=== PATIENT | male | born 1950 | race Caucasian/White ===

== ENCOUNTER 2019-11-19 08:12 | Emergency (ER) | payer OTHER, SELFPAY ==
[2019-11-19 08:14] VITALS: BP 129/92; PULSE 64; RESP 12; TEMP 36.8; O2SAT 96; BMI 34.7
[2019-11-19 08:18] VITALS: PULSE 60
--- NOTE | 2019-11-19 08:19 | RAD_ITS ---
STUDY: X-RAY CHEST REASON FOR EXAM: Male, 69 years old. CHEST PAIN, ARM TINGLING TECHNIQUE: PA and lateral views of the chest. COMPARISON: None. FINDINGS: EKG electrodes are seen. The lungs are clear and expanded. There is no demonstrated pleural abnormality. Normal size heart. Normal mediastinum and beni. Normal visualized pulmonary arteries. Normal visualized aortic arch and descending thoracic aorta. There are mild degenerative changes of the visualized thoracic spine. Normal visualized ribs, clavicles, and shoulders. There is no demonstrated abnormality of the visualized soft tissue structures of the upper abdomen. RAD/Chest PA and Lateral IMPRESSION: No acute abnormality is seen. Electronically Signed: Nils Leavitt, at 9:10 EST , Service support ,
--- NOTE | 2019-11-19 08:19 | EKG12_ITS ---
Test Reason : Blood Pressure : / mmHG Vent. Rate : 062 BPM Atrial Rate : 062 BPM P-R Int : 178 ms QRS Dur : 092 ms QT Int : 418 ms P-R-T Axes : 045 053 019 degrees QTc Int : 424 ms Normal sinus rhythm Normal ECG Confirmed by ANGÉLICA MADERA ([id number]), deputy editor in chief ABDIRAHMAN FELDMAN ([id number]) on 11/23/2019 3:46:17 PM Referred By: OSCAR Confirmed By:ANGÉLICA MADERA
--- NOTE | 2019-11-19 08:23 | NURSING ---
NO OLD EKGS
--- NOTE | 2019-11-19 08:28 | ED.DCSUM_ITS ---
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 He states it made his right arm ache and hands tingle. His son gave him a nitroglycerin and he states his left arm started to tingle. EMS arrived and noted him to be in SVT. They attempted vagal maneuvers and eventually he converted to a sinus rhythm and symptoms resolved. He tells me he has had this before since his cardiac stent placement. He was seen at another facility for that event. He reports having had a stent placed what he believes was the LAD 2 to 3 years ago in [place]. He does not believe that he has had a stress test since that time. States he still sees a juvenile corrections officer in [place] but cannot recall the name. He does not have a complete list of medications with him. He does note that he is on Plavix and aspirin. He sees Dr. Boyer for cardiology through [facility]. 1 of the patient's concerns not related to this episode is that he is hoping to get some back injections for a lower back injury and they wanted him off of his Plavix for 7 days. They just turned that request into his juvenile corrections officer. Past Medical History - Allergies and Home Meds Allergies/Adverse Reactions: Allergies No Known Allergies Allergy (Verified 11/19/19 08:14) Primary Care Physician: Evelyn Rosales DO [Primary Care Provider] - Smoking Status: Never smoker Review of Systems General: Denies: Chills, Fever, Sweats Eyes: Denies: Visual changes - bilaterally, Diplopia ENT: Denies: Rhinorrhea, Sore throat Cardiovascular: Reports: Chest pain, Palpitations, Heart racing Respiratory: Denies: Dyspnea, Cough, Dyspnea on exertion Gastrointestinal: Denies: Abdominal pain, Nausea, Vomiting, Diarrhea, Melena, Hematochezia Genitourinary: Denies: Dysuria, Hematuria, Frequency Musculoskeletal: Denies: Back pain, Extremity Pain Skin: Denies: Rash, Wounds Neurological: Denies: Headache, Weakness, Numbness Physical Exam Vital Signs/Narrative: Vital Signs Temp Pulse Resp BP Pulse Ox 11/19/19 08:18 60 11/19/19 08:14 98.2 F 64 12 129/92 H 96 Inital Vital Signs reviewed: Yes General: Well nourished, Well developed, No Acute Distress Head: Normocephalic, Atraumatic Eyes: Perrl, EOMI ENT: Moist mucous membranes, No rhinorrhea Neck: Supple, Nontender Cardiovascular: Regular rate, Regular rhythm, No murmurs Respiratory: No distress, CTA bilaterally, Chest nontender Abdomen: Soft, Nontender, Nondistended, Normal bowel sounds Back: Nontender, Normal Inspection Extremities: Nontender, No edema Skin: Normal color, No rash Neurological: Alert, Oriented x3, Cranial nerves II-XII grossly intact, Normal Strength, Normal Sensation Psychological: Normal affect, Normal Mood Diagnostic/Tx/Re-eval - Rhythm Strip Rhythm Strip: Sinus Rhythm Rate: 62 - No concerning features for ACS. Ectopy: None - Medical Decision Making Patient's basic labs including magnesium potassium sodium TSH and troponin were normal. Chest x-ray showed a normal mediastinal silhouette. His EKG shows a sinus rhythm. His resting heart rate has been mid 50s to 60. He has had no further events on monitor her symptoms. I spoke with on-call juvenile corrections officer Dr. Esteves who is offering for his juvenile corrections officer. Will be discharged home to follow-up with his juvenile corrections officer. As far as the question is stopping the Plavix that is something they will need to address at his follow-up appointment. Given that his resting heart rate is in the 50s and 60s and he was previously on atenolol for which his states was stopped due to symptoms of feeling sluggish and fatigue I do not think we should start a new medication. ED Disposition - Plan for ED Patient: Disposition: Home or Assisted Living Diagnosis: SVT (supraventricular tachycardia) Instructions: Inna (P.A.T.) Referrals: Evelyn Rosales DO [Primary Care Provider] - Additional Instructions: Please call your juvenile corrections officer today to arrange early follow-up. If symptoms recur please go to your nearest emergency department.
--- NOTE | 2019-11-19 08:38 | NURSING ---
LEFT MESSAGE ON DR BERNAL'S NURSE'S MACHINE FOR MED LIST
[2019-11-19 08:39] LABS: Absolute Lymphocyte Count 1.74 X10^3/uL (0.83-4.51); Absolute Neutrophil Count 3.8 X10^3/uL (2.0-7.7); Basophil# 0.04 X10^3/uL; Basophil% 0.7 % (0-1); Eosinophil# 0.19 X10^3/uL; Eosinophils% 3.1 % (0-5); Hematocrit 45.6 % (40-54); Hemoglobin 15.2 g/dL (13.0-16.5); Lymphocyte # 1.74 X10^3/ul (4.0); Lymphocyte % 28.7 % (19-41); Mean Corp Hgb Conc 33.3 g/dL (32-36); Mean Platelet Vol. 9.2 fl (6.2-12.0); Monocyte# 0.34 X10^3/uL; Monocyte% 5.6 % (0-10); NRBC Flagged by Analyzer 0 % (0-5); Neutrophil # 3.75 X10^3/uL (2.7-7.7); Neutrophil % 61.7 % (47-70); Platelet Count 211 K/mm3 (150-450); RBC Distribution Width CV 12.9 % (11.6-14.6); RBC Distribution Width SD 40.6 fl (35.1-43.9); Red Blood Count 5.24 M/mm3 (4.6-6.2); White Blood Count 6.1 K/mm3 (4.4-11.0)
[2019-11-19 08:53] LABS: Anion Gap 7 (5-15); BUN 25 mg/dL (7-18); BUN/Creat Ratio 19.7 RATIO (10-20); Calcium,Total 9.2 mg/dL (8.5-10.1); Chloride 109 mmol/L (98-107); Creatinine, Serum 1.27 mg/dL (0.70-1.30); EST Glomerular Filtration Rate 60 mL/min (>60); Est Glom Filt Rate - Afr Amer 73 mL/min (>60); Estimated Creatinine Clearance 61.95 ml/min; Glucose 148 mg/dL (74-106); Magnesium 2.2 mg/dL (1.6-2.6); Potassium 3.5 mmol/L (3.5-5.1); Sodium Level 141 mmol/L (136-145); Thyroid Stim Hormone (TSH) 2.04 uIU/mL (0.358-3.74)
--- NOTE | 2019-11-19 09:10 | NURSING ---
CALLED [facility] [employer] FOR DR MOORE
[2019-11-19 09:40] VITALS: BP 123/86; PULSE 59; RESP 18; O2SAT 96
== END 2019-11-19 09:41 | disposition home or self-care (01) ==
PROVIDERS: Emergency Provider Emergency Medicine; PCP Family Medicine
DX: I47.1 Supraventricular tachycardia (principal); Z95.5 Presence of coronary angioplasty implant and graft
CPT/HCPCS: 71046; 80048; 83735; 84443; 84484; 85025; 93005; 99285; J7030; A4216

== ENCOUNTER → 2022-11-21 | Outpatient (CLI) | payer MEDICARE, OTHER, SELFPAY ==
[2022-11-21 12:12] LABS: Bacteria 0 SEEN /hpf (None Seen); Mucous, Urine 0 SEEN /hpf (<or=2+); Red Blood Cells-Urine 0 SEEN /hpf (0-5); Squamous Epithelial Cells - UA 0 SEEN /hpf (0-5); White Blood Cells 0 SEEN /hpf (0-5)
[2022-11-21 15:37] LABS: Absolute Neutrophil Count 3.7 X10^3/uL (2.0-7.7); Basophil# 0.06 X10^3/uL; Eosinophil# 0.15 X10^3/uL; Eosinophils% 2.5 % (0-5); Hematocrit 47.1 % (40-54); Hemoglobin 15.4 g/dL (13.0-16.5); Lymphocyte % 27.2 % (19-41); Mean Corp Hgb Conc 32.7 g/dL (32-36); Mean Corpuscular Hgb 29.6 pg (27.0-32.0); Mean Corpuscular Volume 90.6 fL (80-94); Mean Platelet Vol. 9.5 fl (6.2-12.0); Monocyte# 0.35 X10^3/uL; Monocyte% 5.9 % (0-10); NRBC Flagged by Analyzer 0 % (0-5); Neutrophil % 62.9 % (47-70); Platelet Count 220 K/mm3 (150-450); RBC Distribution Width CV 12.8 % (11.6-14.6); White Blood Count 5.9 K/mm3 (4.4-11.0)
[2022-11-21 16:01] LABS: ALB/GLOB Ratio 1.1 RATIO (0.9-2.4); AST(SGOT) 16 U/L (15-37); Alanine Aminotransfer ALT/SGPT 31 U/L (16-61); Albumin, Serum 4.1 g/dL (3.2-5.0); Alkaline Phosphatase 92 U/L (45-117); Anion Gap 7 (5-15); BUN 18 mg/dL (7-18); BUN/Creat Ratio 15.5 RATIO (10-20); Calcium,Total 8.6 mg/dL (8.5-10.1); Chloride 105 mmol/L (98-107); Cholesterol 93 mg/dL (200); Creatinine, Serum 1.16 mg/dL (0.70-1.30); EST Glomerular Filtration Rate 66 mL/min (>60); Est Glom Filt Rate - Afr Amer 80 mL/min (>60); Globulin 3.6 g/dL (2.2-4.2); Glucose 105 mg/dL (74-106); High Density Lipoprotein 40 mg/dL; Potassium 3.9 mmol/L (3.5-5.1); Protein, Total 7.7 g/dL (6.4-8.2); Sodium Level 139 mmol/L (136-145); Thyroid Stim Hormone (TSH) 1.54 uIU/mL (0.358-3.74); Triglycerides 102 mg/dL; Uric Acid 4.6 mg/dL (3.5-7.2); Very Low Density Lipoprotein 20 mg/dL (5-40)
[2022-11-21 16:02] LABS: Glucose, Dipstick Normal (Normal); Ketone-Dipstick Negative (Negative); Leukocyte Esterase-Dipstick Negative /ul (Negative); Nitrite-Dipstick Negative (Negative); Occult Blood-Urine Negative /ul (Negative); Protein-Dipstick Negative (Negative); Specific Gravity, Urine 1.015 (1.002-1.030); Urine Bilirubin Dipstick Negative (Negative); Urine Urobilinogen Normal (Normal)
[2022-11-21 16:54] LABS: Color, Urine Yellow (Yellow); Urine Clarity Clear (Clear)
[2022-11-22 15:12] LABS: Hemoglobin A1c 5.9 % (3.8-5.6)
[2022-11-23 19:19] LABS: Anti-Thyroglobulin AB < 1.0 IU/mL (0.0-0.9); Thyroglobulin, Serum Qt. 10.2 ng/mL (1.4-29.2); Thyroid Peroxidase AB < 9 IU/mL (0-34)
== END | disposition home or self-care (01) ==
LOC: MFPLAB 12:03
PROVIDERS: PCP Family Medicine; Referring Provider Family Medicine; Visit Provider Family Medicine
DX: R73.9 Hyperglycemia, unspecified (principal); E04.1 Nontoxic single thyroid nodule; I10 Essential (primary) hypertension
CPT/HCPCS: 36415; 80053; 80061; 81001; 83036; 84432; 84439; 84443; 84550; 85025; 86376; 86800

== ENCOUNTER → 2023-01-15 | Outpatient (CLI) | payer MEDICARE, OTHER, SELFPAY ==
--- NOTE | 2023-01-15 16:32 | RAD_ITS ---
INDICATION: PAIN EXAMINATION/TECHNIQUE: X-RAY - RIGHT XR Knee 3 Views 3 VIEWS COMPARISON: Left knee radiograph on same day. FINDINGS: SOFT TISSUES: Minimal prepatellar soft tissue thickening. No joint effusion. No radiopaque foreign body. BONES/JOINTS: No acute fracture.. Normal alignment. Tricompartment joint space narrowing, moderate in the medial compartment with minimal patellar and medial tibial plateau osteophyte formation... No sclerotic or destructive changes observed. 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 Minimal prepatellar soft tissue thickening of unknown significance, sometimes secondary to bursitis in the absence of trauma.. Electronically Signed: Matthew Verdin MD at 6:45 EDT ,
--- NOTE | 2023-01-15 16:35 | RAD_ITS ---
INDICATION: PAIN EXAMINATION/TECHNIQUE: X-RAY - LEFT XR Knee 3 Views 3 VIEWS COMPARISON: None. FINDINGS: SOFT TISSUES: Mild prepatellar soft tissue edema. No subcutaneous emphysema. No radiopaque foreign body. BONES/JOINTS: No acute fracture.. Normal alignment. Medial and patellofemoral compartment moderate space narrowing with minimal osteophyte formation. No sclerotic or destructive changes observed. RAD/Knee 3 Views IMPRESSION: Moderate osteoarthritis predominantly within the medial and patellofemoral compartment.. Mild prepatellar soft tissue edema of uncertain significance, sometimes secondary to bursitis in the absence of trauma. Electronically Signed: Matthew Verdin MD at 6:41 EDT ,
== END | disposition home or self-care (01) ==
LOC: MTRAD 16:31
PROVIDERS: PCP Family Medicine; Referring Provider Family Medicine; Visit Provider Family Medicine
DX: M25.561 Pain in right knee (principal); M25.562 Pain in left knee
CPT/HCPCS: 73562

== ENCOUNTER → 2023-02-01 | Outpatient (CLI) | payer MEDICARE, OTHER, SELFPAY ==
--- NOTE | 2023-02-01 13:47 | ECHOCS_ITS ---
Reason For Study: Cardiac Murmur Procedure This was a 2D Doppler, Color Flow transthoracic echocardiogram. The study was technically difficult. Contrast injection was performed. Exam performed in department. Left Ventricle Normal LV size. The estimated ejection fraction is 65 %. No evidence for diastolic dysfunction. No regional wall motion abnormalities noted. Right Ventricle Normal RV size. Normal systolic function. Atria Normal left atrium. Normal right atrium. No doppler evidence for ASD. Bubble contrast study negative for right to left interatrial shunt. Mitral Valve There is no mitral valve stenosis. No mitral valve insufficiency. Tricuspid Valve There is no tricuspid stenosis. Unable to estimate RV systolic pressure due to inadequate jet, pulmonary artery pressure probably normal. Aortic Valve Trisinus/trileaflet aortic valve. There is no aortic stenosis. No aortic valve insufficiency. Pulmonic Valve There is no pulmonic valvular stenosis. No pulmonic valve insufficiency. Great Vessels Normal aortic root. Pericardium/Pleural No pericardial effusion. Medication 22 gauge I.V. with prn adaptor inserted into left arm. Diluted definity 1.5ml given slow IV push to enhance endocardial definition. Performed a rapid injection of agitated mix of 9 cc saline and 1cc air to assess for atrial septal defect. MMode/2D Measurements & Calculations LVIDd: 4.8 cm IVSd: 1.5 cm LA dimension: 5.1 cm LVIDs: 3.1 cm LVPWd: 1.3 cm RVDd: 5.1 cm FS: 34.9 % LAV(MOD-bp): 79.1 ml LA A4 area: 26.2 cm2 RA A4 area: 23.1 cm2 LAV(MOD-bp) Indexed: 33.7 ml/m2 LAV(MOD-sp2): 62.3 ml LAV(MOD-sp4): 88.8 ml Time Measurements MV dec time: 0.33 sec Doppler Measurements & Calculations MV E max guero: 60.6 cm/sec Lat Peak E' Guero: 10.2 cm/sec Med Peak E' Guero: 8.1 cm/sec MV A max guero: 90.6 cm/sec E/E' lat: 6.0 E/E' med: 7.5 MV E/A: 0.67 MV V2 max: 114.3 cm/sec MV P1/2t max guero: 85.7 cm/sec Ao V2 max: 159.9 cm/sec MV max P.2 mmHg MV P1/2t: 126.2 msec Ao max P.2 mmHg MV V2 mean: 50.2 cm/sec MV dec slope: 198.9 cm/sec2 Ao V2 mean: 108.4 cm/sec MV mean P.2 mmHg Ao mean P.3 mmHg MV V2 VTI: 42.1 cm MVA(P1/2t): 1.7 cm2 Ao V2 VTI: 34.4 cm LV V1 max: 136.1 cm/sec PA V2 max: 112.1 cm/sec LV V1 max P.4 mmHg ECHO/Echo Complete W/ Contrast Interpretation Summary The estimated ejection fraction is 65 %. No evidence for diastolic dysfunction. Ordering Physician: Juliocesar Dominguez Referring Physician: Juliocesar Dominguez Performed By: Roscoe Barger, PRAVIN
== END | disposition home or self-care (01) ==
LOC: CVS 13:37
PROVIDERS: PCP Family Medicine; Referring Provider Family Medicine; Visit Provider Family Medicine
DX: R01.1 Cardiac murmur, unspecified (principal)
CPT/HCPCS: 93306; Q9957; A4216; C8929

== ENCOUNTER → 2023-06-05 | Outpatient (CLI) | payer MEDICARE, OTHER, SELFPAY ==
[2023-06-05 17:43] LABS: Absolute Lymphocyte Count 1.38 X10^3/uL (0.83-4.51); Absolute Neutrophil Count 4.9 X10^3/uL (2.0-7.7); Basophil# 0.05 X10^3/uL; Basophil% 0.7 % (0-1); Eosinophil# 0.13 X10^3/uL; Eosinophils% 1.9 % (0-5); Hematocrit 45.5 % (40-54); Hemoglobin 14.5 g/dL (13.0-16.5); Lymphocyte # 1.38 X10^3/ul (0.83-4.51); Lymphocyte % 19.9 % (19-41); Mean Corp Hgb Conc 31.9 g/dL (32-36); Mean Corpuscular Hgb 29.4 pg (27.0-32.0); Mean Corpuscular Volume 92.1 fL (80-94); Mean Platelet Vol. 8.8 fl (6.2-12.0); Monocyte# 0.47 X10^3/uL; Monocyte% 6.8 % (0-10); NRBC Flagged by Analyzer 0 % (0-5); Neutrophil # 4.87 X10^3/uL (2.7-7.7); Neutrophil % 70.3 % (47-70); Platelet Count 203 K/mm3 (150-450); RBC Distribution Width CV 13.1 % (11.6-14.6); RBC Distribution Width SD 43.8 fl (35.1-43.9); Red Blood Count 4.94 M/mm3 (4.6-6.2); White Blood Count 6.9 K/mm3 (4.4-11.0)
[2023-06-05 18:27] LABS: ALB/GLOB Ratio 1.1 RATIO (0.9-2.4); AST(SGOT) 13 U/L (15-37); Alanine Aminotransfer ALT/SGPT 26 U/L (16-61); Alkaline Phosphatase 83 U/L (45-117); Anion Gap 5 (5-15); BUN 18 mg/dL (7-18); Calcium,Total 8.7 mg/dL (8.5-10.1); Chloride 105 mmol/L (98-107); Cholesterol 98 mg/dL (200); Creatinine, Serum 1.29 mg/dL (0.70-1.30); EST Glomerular Filtration Rate 58 mL/min (>60); Est Glom Filt Rate - Afr Amer 71 mL/min (>60); Globulin 3.5 g/dL (2.2-4.2); Glucose 89 mg/dL (74-106); Hemoglobin A1c 5.3 % (3.8-5.6); High Density Lipoprotein 39 mg/dL; Potassium 3.7 mmol/L (3.5-5.1); Protein, Total 7.5 g/dL (6.4-8.2); Sodium Level 139 mmol/L (136-145); Triglycerides 159 mg/dL; Uric Acid 4.6 mg/dL (3.5-7.2); Very Low Density Lipoprotein 32 mg/dL (5-40)
== END | disposition home or self-care (01) ==
LOC: MFPLAB 17:04
PROVIDERS: PCP Family Medicine; Visit Provider Family Medicine
DX: R73.02 Impaired glucose tolerance (oral) (principal); E78.5 Hyperlipidemia, unspecified; I10 Essential (primary) hypertension; M10.9 Gout, unspecified
CPT/HCPCS: 36415; 80053; 80061; 83036; 84550; 85025

== ENCOUNTER → 2023-06-18 | Outpatient (CLI) | payer MEDICARE, OTHER, SELFPAY ==
[2023-06-18 12:44] LABS: Anion Gap 6 (5-15); BUN 24 mg/dL (7-18); BUN/Creat Ratio 21.2 RATIO (10-20); Calcium,Total 8.8 mg/dL (8.5-10.1); Chloride 108 mmol/L (98-107); Creatinine, Serum 1.13 mg/dL (0.70-1.30); EST Glomerular Filtration Rate 68 mL/min (>60); Est Glom Filt Rate - Afr Amer 82 mL/min (>60); Glucose 111 mg/dL (74-106); Potassium 4.1 mmol/L (3.5-5.1); Sodium Level 138 mmol/L (136-145)
== END | disposition home or self-care (01) ==
LOC: MFPLAB 10:32
PROVIDERS: PCP Family Medicine; Visit Provider Family Medicine
DX: R94.4 Abnormal results of kidney function studies (principal)
CPT/HCPCS: 36415; 80048

== ENCOUNTER 2023-07-11 14:53 | Emergency (ER) | payer MEDICARE, OTHER, SELFPAY ==
[2023-07-11 14:58] VITALS: BP 137/77; PULSE 53; RESP 18; TEMP 36.1; O2SAT 98
--- NOTE | 2023-07-11 15:22 | EKG12_ITS ---
Test Reason : GENERAL Blood Pressure : / mmHG Vent. Rate : 049 BPM Atrial Rate : 049 BPM P-R Int : 200 ms QRS Dur : 086 ms QT Int : 438 ms P-R-T Axes : 046 047 032 degrees QTc Int : 395 ms Sinus bradycardia Otherwise normal ECG Confirmed by OBEY ANDRES, CHANDNI ([id number]), fashion editor STERLING LIU ([id number]) on 07/16/2023 12:20:39 PM Referred By: Confirmed By:CHANDNI BARNHART MD
--- NOTE | 2023-07-11 15:22 | RAD_ITS ---
STUDY: X-RAY CHEST REASON FOR EXAM: Male, 73 years old. Bradycardia TECHNIQUE: Single AP portable view of the chest. COMPARISON: Comparison is made with prior study dated November 19, 2019. FINDINGS: EKG electrodes are seen. Basilar congestion and mild CHF. There is no demonstrated pleural abnormality. There is mild cardiac enlargement. Normal mediastinum and beni. Normal visualized pulmonary arteries. There is atherosclerotic tortuosity of the aortic arch and descending thoracic aorta. Normal visualized thoracic spine. Normal visualized ribs, clavicles, and shoulders. There is no demonstrated abnormality of the visualized soft tissue structures of the upper abdomen. RAD/Chest 1 View (Portable) IMPRESSION: Vascular congestion and CHF. Mild cardiomegaly. Electronically Signed: Nils Leavitt MD at 15:35 EDT ,
--- NOTE | 2023-07-11 15:23 | EX.ED.DYSGE1 ---
HPI History of Present Illness Chief Complaint: General Illness Detail of Chief Complaint: Headache, congestion, low heart rate Informant: patient and spouse/S.O. Narrative Narrative: Patient presents to the emergency department with multiple complaints. Main concern was that while at home his heart rate as low as 48. 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 Patient has had some Mucinex. Describes a headache in the back of his head. He has had some lightheadedness. Patient also complains of some intermittent numbness and tingling into his left arm and down to his hand lasting seconds and then resolves. He denies any weakness or vision changes or difficulty with speech. Patient has history of a cardiac stent. He denies chest pain or shortness of breath. He denies sick contacts. [facility] Medical History (Updated 07/11/23 @ 18:[address] Silvia Mariee, ) H/O: gout HTN (hypertension) Hypercholesteremia Home Medications allopurinol 300 mg tablet 300 mg PO DAILY 11/19/19 [History Last Taken Unknown] atorvastatin 80 mg tablet 80 mg PO QHS 11/19/19 [History Last Taken Unknown] clopidogrel 75 mg tablet 75 mg PO DAILY 11/19/19 [History Last Taken Unknown] colchicine (gout) 0.6 mg capsule 0.6 mg PO DAILY 11/19/19 [History Last Taken Unknown] diclofenac sodium 75 mg tablet,delayed release 75 mg PO BIDCM 11/19/19 [History Last Taken Unknown] lisinopril 2.5 mg tablet 2.5 mg PO DAILY 11/19/19 [History Last Taken Unknown] nitroglycerin 0.4 mg sublingual tablet 0.4 mg sublingual Q5M PRN Chest Pain 11/19/19 [History Last Taken Unknown] trazodone 100 mg tablet 150 mg PO QHS 11/19/19 [History Last Taken Unknown] Allergy/AdvReac Type Severity Reaction Status Date / Time No Known Allergies Allergy Verified 07/11/23 14:58 Surgical History (Updated 07/11/23 @ 15:20 by Teresa Polk) H/O heart artery stent Social History Smoking Status: Never smoker ROS ROS ED Review of Systems ROS Unobtainable: other Constitutional Constitutional ED: Reports lethargy; Denies chills, fever(s), sweats or weight loss Eyes Eyes: Denies blurry vision, change in vision or diplopia ENT ENT ED: Reports other Details: Congestion ; Denies rhinorrhea or sore throat Cardiovascular Cardiovascular: Reports other Details: Bradycardia ; Denies chest pain, orthopnea or racing heartbeat Respiratory/Chest Respiratory/Chest: Reports dyspnea and dyspnea on exertion; Denies cough, orthopnea or sputum Gastrointestinal Gastrointestinal: Denies abdominal pain, diarrhea, nausea or vomiting Genitourinary Genitourinary ED: Denies dysuria, hematuria or urinary frequency Musculoskeletal Musculoskeletal: Denies arthralgias, back pain, myalgias or neck pain Integumentary Denies abscess, Abrasions or rash Neurologic Neurologic: Reports headache(s) and paresthesias; Denies weakness Psychiatric Psychiatric: Denies anxiety, depression or suicidal thoughts Endocrine Endocrinology: Denies polydipsia, polyphagia or polyuria Hematologic/Lymphatic Hematologic/Lymphatic: Denies easy bleeding, easy bruising or lymphadenopathy Allergic/Immunologic Allergic/Immunologic ED: Denies mouth swelling, tongue swelling or urticaria EXAM Physical Exam Const Vital Signs: 07/11/23 14:58 07/11/23 15:19 07/11/23 16:49 Temperature 96.9 F L Temperature Source Temporal Pulse Rate 53 L Pulse Rate [Lying] 57 L Pulse Rate [Sitting (for 1 minute prior to obtaining)] 55 L Pulse Rate [Standing (for 1 minute prior to obtaining)] 62 Respiratory Rate 18 Respiratory Effort Normal Non-Labored Blood Pressure 137/77 H Blood Pressure [Lying] 131/71 H Blood Pressure [Sitting (for 1 minute prior to obtaining)] 128/81 H Blood Pressure [Standing (for 1 minute prior to obtaining)] 143/80 H Blood Pressure Mean 97 Blood Pressure Mean [Lying] 91 Blood Pressure Mean [Sitting (for 1 minute prior to obtaining)] 96 Blood Pressure Mean [Standing (for 1 minute prior to obtaining)] 101 Pulse Ox 98 Oxygen Delivery Method Room Air 07/11/23 18:27 Temperature Temperature Source Pulse Rate 55 L Pulse Rate [Lying] Pulse Rate [Sitting (for 1 minute prior to obtaining)] Pulse Rate [Standing (for 1 minute prior to obtaining)] Respiratory Rate 18 Respiratory Effort Blood Pressure 126/66 H Blood Pressure [Lying] Blood Pressure [Sitting (for 1 minute prior to obtaining)] Blood Pressure [Standing (for 1 minute prior to obtaining)] Blood Pressure Mean 86 Blood Pressure Mean [Lying] Blood Pressure Mean [Sitting (for 1 minute prior to obtaining)] Blood Pressure Mean [Standing (for 1 minute prior to obtaining)] Pulse Ox 97 Oxygen Delivery Method Positive well nourished and well developed General Appearance ED: well developed and NAD HEENT Reports TM's clear and moist mucous membranes normocephalic and atraumatic; Negative for trauma or tenderness Tympanic Membrane ED: Yes TM's clear Eyes PERRL and EOMs intact bilaterally General Eye ED: Negative for pale conjunctiva or scleral icterus Neck no lymphadenopathy, supple and no JVD General: Negative for tenderness Chest Wall inspection of chest normal and palpation of chest normal Chest: Negative for tenderness Resp normal respiratory effort and clear to auscultation bilaterally Effort and Inspection: Negative for respiratory distress or pain with movement Auscultation: Negative for rhonchi, wheezes or diminished lung sounds Cardio regular rate, regular rhythm, S1 normal heart sound, S2 normal heart sound and no murmurs Peripheral Pulses: pulses 2+ throughout GI normal to inspection, nondistended, normoactive bowel sounds, soft to palpation, non-tender, non-distended and no masses Back/Spine no CVA tenderness and no thoracic nor lumbar tenderness Extremity normal to inspection General Extremety ED: Negative for edema General Extremity: Negative for edema Neuro oriented x3, CN's II-XII intact bilaterally, no sensory deficits noted and gait normal Sensorium / Orientation: awake, alert, oriented to person, oriented to place and oriented to time Motor Exam: strength 5/5 throughout and strength abnormal Psych mental status grossly normal Skin no rashes or lesions noted and no wounds MDM MDM MDM Narrative Medical decision making narrative: Patient presents with multiple complaints. Suspect possibility of viral etiology given congestion and headache. Suspicion for cardiac etiology is low as far as acute coronary syndrome. Patient does have noted bradycardia on arrival however his heart rate normally in the 60s and he has a normal blood pressure therefore I do not feel his bradycardia is the cause of his lightheadedness. Patient will have basic labs obtained. We will obtain COVID and flu screen. Given the paresthesias etiology unclear but very low suspicion for stroke or TIA. Patient lab work-up showed a normal white count of 6.7 with chemistries that were unremarkable. Troponin was 10. Delta troponin also 10. CT scan of the brain without contrast was unremarkable. Chest x-ray 1 view obtained interpreted by myself as is increased interstitial markings. Radiology felt there was evidence of CHF and mild cardiomegaly. Clinically the patient looks well and is not hypoxic. Will discharge to home. Suspect likely of viral etiology for a lot of his symptoms and even though COVID is negative may take several days to turn positive I did advise him of this. Lab Data Attestation: I reviewed the patient's lab results. Labs: Laboratory Results - last 24 hr 07/11/23 07/11/23 15:17 17:25 WBC 6.7 RBC 4.83 Hgb 14.3 Hct 44.2 MCV 91.5 MCH 29.6 MCHC 32.4 RDW Std Deviation 46.2 H RDW Coeff of [place] 13.7 Plt Count 192 MPV 8.7 Immature Gran % (Auto) 0.300 Neut % (Auto) 73.8 H Lymph % (Auto) 19.1 [place] % (Auto) 4.9 Eos % (Auto) 1.3 Baso % (Auto) 0.6 Absolute Neuts (auto) 5.0 Absolute Lymphs (auto) 1.29 Nucleated RBC % 0 Sodium 139 Potassium 3.7 Chloride 107 Carbon Dioxide 28.0 Anion Gap 4 L BUN 18 Creatinine 1.20 Est GFR (MDRD) Af Amer 77 Est GFR (MDRD) Non-Af 63 BUN/Creatinine Ratio 15.0 Glucose 124 H Calcium 8.9 Troponin I High Sens 10 10 Radiography Diagnostic Testing: Clinical Impression(s) from Imaging Studies Chest X-Ray 07/11/23 15:22 IMPRESSION: Vascular congestion and CHF. Mild cardiomegaly. Electronically Signed: Nils Leavitt MD at 15:35 EDT , Brain CT 07/11/23 15:38 IMPRESSION: Normal unenhanced CT scan of the brain. Electronically Signed: Michele Hazel MD at 16:48 EDT , 1 view chest x-ray obtained interpreted by myself as increased residual markings with no evidence of infiltrate. Radiology felt there was CHF and mild cardiomegaly. EKG Initial EKG: Comments: Sinus bradycardia with a rate of 49 bpm with no acute ST segment changes. Prior EKG tracings: available for review Prior: Changed Discharge Plan Triage Chief Complaint: General Illness ED Provider: Silvia Mariee Dx/Rx/DC Orders Clinical Impression: Acute viral syndrome, Bradycardia, Headache Instructions: ED Bradycardia, ED Viral Syndrome (Adult) Prescriptions: No Action atorvastatin 80 MG tablet 80 mg PO QHS clopidogrel 75 MG tablet 75 mg PO DAILY trazodone 100 MG tablet 150 mg PO QHS nitroglycerin 0.4 MG tablet, sublingual 0.4 mg sublingual Q5M PRN (Reason: Chest Pain) diclofenac sodium 75 MG tablet 75 mg PO BIDCM allopurinol 300 MG tablet 300 mg PO DAILY lisinopril 2.5 MG tablet 2.5 mg PO DAILY colchicine (gout) 0.6 MG capsule 0.6 mg PO DAILY Primary Care Provider: Juliocesar Dominguez Referrals: Pedro Linares MD [Med Staff - Active Staff] - 3-5 Days Juliocesar Dominguez MD [Primary Care Provider] - 3-5 Days Disposition Disposition: Home, Self Care Discharge Date/Time: 07/11/23 18:30
[2023-07-11 15:33] LABS: Absolute Lymphocyte Count 1.29 X10^3/uL (0.83-4.51); Basophil# 0.04 X10^3/uL; Basophil% 0.6 % (0-1); Eosinophil# 0.09 X10^3/uL; Eosinophils% 1.3 % (0-5); Hematocrit 44.2 % (40-54); Hemoglobin 14.3 g/dL (13.0-16.5); Lymphocyte # 1.29 X10^3/ul (0.83-4.51); Lymphocyte % 19.1 % (19-41); Mean Corp Hgb Conc 32.4 g/dL (32-36); Mean Corpuscular Hgb 29.6 pg (27.0-32.0); Mean Corpuscular Volume 91.5 fL (80-94); Mean Platelet Vol. 8.7 fl (6.2-12.0); Monocyte# 0.33 X10^3/uL; Monocyte% 4.9 % (0-10); NRBC Flagged by Analyzer 0 % (0-5); Neutrophil # 4.97 X10^3/uL (2.7-7.7); Neutrophil % 73.8 % (47-70); Platelet Count 192 K/mm3 (150-450); RBC Distribution Width CV 13.7 % (11.6-14.6); RBC Distribution Width SD 46.2 fl (35.1-43.9); Red Blood Count 4.83 M/mm3 (4.6-6.2); White Blood Count 6.7 K/mm3 (4.4-11.0)
--- NOTE | 2023-07-11 15:38 | CT_ITS ---
STUDY: CT BRAIN WITHOUT CONTRAST REASON FOR EXAM: Male, 73 years old. headache, paraesthesisas RADIATION DOSAGE (If Supplied By Facility): CTDIvol = ( 44.99 ) mGy, DLP = ( 829.85 ) mGycm TECHNIQUE: Transaxial CT imaging of the brain was performed without administration of intravenous contrast material. Individualized dose optimization techniques were used for this CT. COMPARISON: No relevant priors. FINDINGS: Normal soft tissue structures. Normal calvarium. Normal size ventricles and extra-axial spaces for the patient''s age. Normal white matter tracts of the cerebral hemispheres. Normal basal ganglia and thalami. Normal brainstem. Normal cerebellum. There is no intracranial hemorrhage. There are no findings of an acute ischemic infarction. Normal visualized paranasal sinuses. CT/Brain/Head without Contrast IMPRESSION: Normal unenhanced CT scan of the brain. Electronically Signed: Michele Hazel MD at 16:48 EDT ,
[2023-07-11 15:47] LABS: Anion Gap 4 (5-15); BUN 18 mg/dL (7-18); Calcium,Total 8.9 mg/dL (8.5-10.1); Chloride 107 mmol/L (98-107); EST Glomerular Filtration Rate 63 mL/min (>60); Est Glom Filt Rate - Afr Amer 77 mL/min (>60); Glucose 124 mg/dL (74-106); Potassium 3.7 mmol/L (3.5-5.1); Sodium Level 139 mmol/L (136-145); Troponin-I HS 10 pg/mL (3.0-78.0)
[2023-07-11] MEDS: 0.9% Normal Saline (1000mL) 1,000 ML 150 ML IV (15:52)
[2023-07-11 16:49] VITALS: BP 128/81; BP 131/71; BP 143/80; PULSE 55; PULSE 57; PULSE 62
[2023-07-11 18:03] LABS: Troponin-I HS 10 pg/mL (3.0-78.0)
[2023-07-11 18:27] VITALS: BP 126/66; PULSE 55; RESP 18; O2SAT 97
== END 2023-07-11 18:30 | disposition home or self-care (01) ==
PROVIDERS: Emergency Provider Emergency Medicine; PCP Family Medicine; Visit Provider Emergency Medicine
DX: B34.9 Viral infection, unspecified (principal); I50.9 Heart failure, unspecified; R51.9 Headache, unspecified; Z95.5 Presence of coronary angioplasty implant and graft
CPT/HCPCS: 70450; 71045; 80048; 84484; 85025; 87428; 93005; 99285; J7030; A4216

== ENCOUNTER → 2023-10-31 | Outpatient (CLI) | payer MEDICARE, OTHER, SELFPAY ==
--- OUTSIDE RECORDS SUMMARY | 2023-10-31 13:15 | XMS RPT_ITS | CCD ---
Author Name Unknown Address [address] [place] [address] Organization [facility] Care Team Providers Care Cardiac Sonographer Name Role Phone AYDIN DAVID DO Primary Care Physician Kosta PT, Abby Unavailable Unavailable Unavailable Primary Care Provider Unavailkaela SARMIENTO MD, KEY Consulting Unavailable AYDIN DAVID DO Primary Care Unavailable GLORIA ANDRES, POPEYE Attending Unavailable STEPHANIE ANDRES, THUY Attending Unavailable AYDIN DAVID DO Primary Care Unavailable Medications Current Medications Medication Drug Class(es) Dates Sig (Normalized) Sig (Original) allopurinol 300 mg oral tablet (9 sources) Xanthine Oxidase Inhibitor Start: 08-17-2022 allopurinol 300 mg oral tablet Dose : 300 mg = 1 tab(s), Oral, qDay, # 90 tab(s), 3 Refill(s), Pharmacy: [facility]/pharmacy #[id number], Gout, 182, cm, 08/17/22 11:36:00 EST, Height, kg, 08/17/22 11:36:00 EST, Dosing Weight Start Date: 08/17/22 Status: Ordered Completed/Discontinued Medications Medication Drug Class(es) Dates Sig (Normalized) Sig (Original) clopidogrel 75 mg oral tablet (2 sources) P2Y12 Platelet Inhibitor Start: 01-16-2017 clopidogrel (PLAVIX) 75 mg tablet Lactobacillus acidophilus (2 sources) Start: 04-17-2022 End: 05-17-2022 take 1 capsule by mouth once daily Acidophilus oral capsule Dose = 1 cap(s), Oral, qDay, # 30 cap(s), 0 Refill(s), Pharmacy: [facility]/pharmacy #[id number], 182.5, cm, 04/17/22 13:08:00 EDT, Height Start Date: 04/17/22 Stop Date: 05/17/22 Status: Ordered Problems Problem Classification Problem Date Documented Date Episodic/Chronic Anxiety disorders (5 sources) Anxiety 12-13-2021 Chronic Calculus of urinary tract (7 sources) Kidney stone 08-28-2019 Episodic Cardiac dysrhythmias (8 sources) Supraventricular tachycardia; Translations: [Supraventricular tachycardia] Onset: 09-03-2022 03-09-2020 Chronic Cardiac dysrhythmias (7 sources) Palpitations 07-05-2020 Episodic Conditions associated with dizziness or vertigo (7 sources) Benign paroxysmal positional vertigo 06-21-2020 Episodic Coronary atherosclerosis and other heart disease (7 sources) Coronary arteriosclerosis in [place] artery 03-09-2020 Chronic Results Test Name Value Interpretation Reference Range Facil it Vital Signs Date Time Vital Sign Value Performing Clinician Faci lity 11-01-2022 11:35-0500 Blood Pressure Location POPEYE CASTRO MD [address] [place] [address] 11-01-2022 11:35-0500 Blood Pressure Method POPEYE CASTRO MD [address] [place] [address] 11-01-2022 11:35-0500 Diastolic Blood Pressure Non-Invasive 70 1 POPEYE CASTRO MD [address] [place] [address] 11-01-2022 11:35-0500 Heart rate 53 /min POPEYE CASTRO MD [address] [place] [address] 11-01-2022 11:35-0500 Systolic Blood Pressure Non-Invasive 120 1 POPEYE CASTRO MD [address] [place] [address] 11-01-2022 10:59-0500 Diastolic Blood Pressure Non-Invasive 82 1 POPEYE CASTRO MD [address] [place] [address] 11-01-2022 10:59-0500 Heart rate 52 /min POPEYE CASTRO MD [address] 11-01-2022 10:59-0500 Respiratory rate 16 /min POPEYE CASTRO MD [address] [place] [address] 11-01-2022 10:59-0500 Systolic Blood Pressure Non-Invasive 120 1 POPEYE CASTRO MD [address] [place] [address] 11-01-2022 10:45-0500 Diastolic Blood Pressure Non-Invasive 77 1 POPEYE CASTRO MD [address] [place] [address] 11-01-2022 10:45-0500 Respiratory rate 16 /min POPEYE CASTRO MD [address] [place] [address] 11-01-2022 10:45-0500 Systolic Blood Pressure Non-Invasive 129 1 POPEYE CASTRO MD [address] [place] [address] 11-01-2022 10:30-0500 Respiratory rate 16 /min POPEYE CASTRO MD [address] [place] [address] 11-01-2022 09:30-0500 Body temperature 97.34 [degF] POPEYE CASTRO MD [address] [place] [address] 11-01-2022 09:25-0500 Body temperature 96.17 [degF] POPEYE CASTRO MD [address] [place] [address] 11-01-2022 09:25-0500 Respiratory Rate - Anes 0 br/min POPEYE CASTRO MD [address] [place] [address] 11-01-2022 09:20-0500 Body temperature 96.24 [degF] POPEYE CASTRO MD [address] [place] [address] 11-01-2022 09:20-0500 Respiratory Rate - Anes 0 br/min POPEYE CASTRO MD [address] [place] [address] 11-01-2022 09:15-0500 Body temperature 96.24 [degF] POPEYE CASTRO MD [address] [place] [address] 11-01-2022 09:15-0500 Respiratory Rate - Anes 0 br/min POPEYE CASTRO MD [address] [place] [address] 11-01-2022 06:05-0500 Blood Pressure Cuff Size POPEYE CASTRO MD [address] [place] [address] 11-01-2022 06:05-0500 Blood Pressure Location POPEYE CASTRO MD [facility] 11-01-2022 06:05-0500 Blood Pressure Method POPEYE CASTRO MD [address] [place] [address] 11-01-2022 06:05-0500 Body height 182.9 cm POPEYE CASTRO MD [address] [place] [address] 11-01-2022 06:05-0500 Body temperature 97.88 [degF] POPEYE CASTRO MD [address] [place] [address] 11-01-2022 06:05-0500 Body weight 114.2 kg POPEYE CASTRO MD [address] [place] [address] 11-01-2022 06:05-0500 Body weight 34.14 kg/m2 POPEYE CASTRO MD [address] [place] [address] 11-01-2022 06:05-0500 Heart rate 54 /min POPEYE CASTRO MD [address] [place] [address] 09-03-2022 22:36-0500 Diastolic Blood Pressure Non-Invasive 83 1 ROSA KRUSETangler [facility] 09-03-2022 22:36-0500 Heart rate 70 /min ROSA BreathalEyes [facility] 09-03-2022 22:36-0500 Reason For Taking VItal Signs ROSA BreathalEyes [facility] 09-03-2022 22:36-0500 Respiratory rate 18 /min ROSA BreathalEyes [facility] 09-03-2022 22:36-0500 Systolic Blood Pressure Non-Invasive 143 1 [employer]A [employer] [facility] 09-03-2022 22:25-0500 Heart rate 67 /min ROSA BreathalEyes [facility] 09-03-2022 22:22-0500 Heart rate 154 /min ROSA MEEKT DO [facility] 09-03-2022 22:01-0500 Diastolic Blood Pressure Non-Invasive 56 1 ROSA MEEKT DO [facility] 09-03-2022 22:01-0500 Reason For Taking VItal Signs ROSA MEEKT DO [facility] 09-03-2022 22:01-0500 Respiratory rate 20 /min ROSA MEEKT DO [facility] 09-03-2022 22:01-0500 Systolic Blood Pressure Non-Invasive 121 1 ROSA MEEKT [employer] [facility] 09-03-2022 20:19-0500 Diastolic Blood Pressure Non-Invasive 66 1 ROSA MEEKT [employer] [facility] 09-03-2022 20:19-0500 Reason For Taking VItal Signs ROSA MEEKT [employer] [facility] 09-03-2022 20:19-0500 Respiratory rate 20 /min ROSA MEEKT [employer] [facility] 09-03-2022 20:19-0500 Systolic Blood Pressure Non-Invasive 117 1 ROSA MEEKT [employer] [facility] 09-03-2022 19:03-0500 Body temperature 98.96 [degF] ROSA MEEKT DO [facility] 09-03-2022 19:03-0500 Heart rate 172 /min ROSA MEEKT [employer] [facility] 08-01-2021 09:30-0400 Heart rate 54 /min DR DOUGLAS CUENCA MD [facility] 08-01-2021 08:26-0400 Diastolic Blood Pressure NBP [address] DOUGLAS CUENCA MD [facility] 08-01-2021 08:26-0400 Heart rate 48 /min DR DOUGLAS CUENCA MD [facility] 08-01-2021 08:26-0400 Respiratory rate 18 /min DR DOUGLAS CUENCA MD [facility] 08-01-2021 08:26-0400 Systolic Blood Pressure NBP [address] DOUGLAS CUENCA MD [facility] 08-01-2021 08:10-0400 Diastolic Blood Pressure NBP [address] DOUGLAS CUENCA MD [facility] 08-01-2021 08:10-0400 Heart rate 46 /min DR DOUGLAS CUENCA MD [facility] 08-01-2021 08:10-0400 Respiratory rate 16 /min DR DOUGLAS CUENCA MD [facility] 08-01-2021 08:10-0400 Systolic Blood Pressure NBP [address] DOUGLAS CUENCA MD [facility] 08-01-2021 07:55-0400 Diastolic Blood Pressure NBP [address] DOUGLAS CUENCA MD [facility] 08-01-2021 07:55-0400 Respiratory rate 18 /min DR DOUGLAS CUENCA MD [facility] 08-01-2021 07:55-0400 Systolic Blood Pressure NBP [address] DOUGLAS CUENCA MD [address] [place] [address] 08-01-2021 05:19-0400 Body height 182.[address] DOUGLAS CUENCA MD [address] [place] [address] 08-01-2021 05:19-0400 Body temperature 98.06 [degF] DR DOUGLAS CUENCA MD [address] [place] [address] 08-01-2021 05:19-0400 Body weight 110.[address] DOUGLAS CUENCA MD [address] [place] [address] 08-01-2021 05:19-0400 Body weight 33.06 kg/m2 DR DOUGLAS CUENCA MD [address] [place] [address] 08-01-2021 05:19-0400 diastolic 79 mm[Hg] DR DOUGLAS CUENCA MD [facility] 08-01-2021 05:19-0400 systolic 146 mm[Hg] DR DOUGLAS CUENCA MD [facility] Encounters Encounter Date Encounter Type Care Provider Facility Start: 10-10-2023 ambulatory THUY BROWN MD Facili ty:B Start: 11-01-2022 End: 11-01-2022 ambulatory KEY SARMIENTO MD Facility:A Start: 11-01-2022 End: 11-01-2022 SAME DAY STAY POPEYE CASTRO MD [facility] Start: 09-14-2022 End: 09-14-[address] DOUGLAS CUENCA MD [facility] Start: 09-03-2022 End: 09-03-2022 Emergency department patient visit ROSA YODER DO [facility] Start: 08-23-2022 End: 08-23-2022 Patient encounter procedure AYDIN DAVID DO [facility] Start: 02-19-2022 End: 02-19-2022 Subsequent hospital visit by physician Rajiv Juárez MD Work Phone: [facility] Procedures Date Procedure Procedure Detail Performing Clinician Start: 12-29-2021 Cardiovascular stres s testing AYDIN DAVID DO Plan of Treatment Date Care Activity Detail Author Start: 06-07-2022 Influenza vaccination INFLUENZA (Sea son Ended) [facility] Start: 10-07-2021 ADVANCE DIRECTIVE DISCUSSION ADVANCE DIRECTIVE DISCUSSION [facility] Start: 06-07-2021 Influenza vaccination INFLUENZA (#1) [facility] Start: 2017 PNEUMOVAX AGE 65 AND OVER WITH 5YR LOOKBACK (#1) PNEUMOVAX AGE 65 AND OVER WITH 5YR LOOKBACK (#1) [facility] Start: 2002 SHINGRIX VACCINE (1 of 2) SHINGRIX V ACCINE (1 of 2) [facility] Start: 1997 COLOGUARD (FIT-DNA) COLOGUARD (FIT-D NA) [facility] Start: 1997 Colonoscopy COLONOSCOPY [facility] Start: 1997 COLORECTAL CANCER SCREENING COLORECTAL CANCER SCREENING [facility] Start: [address] COLONOGRAPHY [facility] Start: 1997 DIABETES SCREEN DIABETES SCREEN [facility] Start: 1997 FECAL OCCULT BLOOD FECAL OCCULT BLOO D [facility] Start: 1997 SIGMOIDOSCOPY SIGMOIDOSCOPY [facility] Start: 1987 LIPID SCREEN LIPID SCREEN [facility] Start: 1971 Urine microalbumin profile DTAP,TDAP ,TD (1 - Tdap) [facility] Start: 1970 HEPATITIS C SCREENING HEPATITIS C SC LUISITO [facility] Start: 1964 Adult depression scr eening assessment DEPRESSION SCREENING [facility] Start: 1957 COVID-19 VACCINE (#1) COVID-19 VACCI NE (#1) [facility] Start: 1957 COVID-19 VACCINE (1) COVID-19 VACCIN E (1) [facility] Immunizations Immunization Date Immunization Notes Care Provider Fa cili 08-17-2022 influenza, high dose seasonal, preservative-free AYDIN DAVID DO [facility] 06-24-2022 SARS-CoV-2 CV19 mRNA-1273 bival connor vax AYDIN DAVID DO [facility] 06-24-2022 SARSCoV2 (CV19)mRNA-1273(6y+ bival connor POPEYE CASTRO MD [facility] 02-01-2022 pneumococcal polysaccharide vaccine, 23 valent AYDIN DAVID DO [facility] 02-01-2022 SARS-CoV-2 mRNA (drbignlrpso-buth-qurel se) vaccine AYDIN DAVID DO [facility] 01-08-2022 zoster vaccine recombinant AYDIN DAVID DO [facility] 11-06-2021 zoster vaccine recombinant AYDIN DAVID DO [facility] 07-04-2021 SARS-CoV-2 (COVID-19 ) mRNA BNT-162b2 vax DR DOUGLAS CUENCA MD [facility] 06-22-2021 influenza virus vaccine, unspecified formulation DR DOUGLAS CUENCA MD [facility] 12-25-2020 SARS-CoV-2 (COVID-19 ) mRNA BNT-162b2 vax [address] DOUGLAS CUENCA MD [facility] 12-04-2020 SARS-CoV-2 (COVID-19 ) mRNA BNT-162b2 vax DR DOUGLAS CUENCA MD [facility] 09-18-2019 influenza, injectabl e, quadrivalent, preservative free; Translations: [Fluarix PF Quadrivalent ] DR DOUGLAS CUENCA MD [facility] 12-03-2017 pneumococcal conjuga te vaccine, [address] DOUGLAS CUENCA MD [facility] 10-11-2016 influenza virus vaccine, unspecified formulation DR DOUGLAS CUENCA MD [facility] 03-05-2014 tetanus toxoid, redu fer diphtheria toxoid, and acellular pertussis vaccine, adsorbed DR DOUGLAS CUENCA MD [facility] Payers Date Payer Category Payer Medicare [id number] 2022 Unknown [id number] 2016 Unknown [facility] [id number] 2016-Present [phone] [address] [facility] [place] [id number] [facility] [id number] 1950 Unknown [id number] 1950 Unknown [id number] Social History Date Type Detail Facility Start: 03-07-2017 End: 12-02-2019 Never smoked tobacco (finding) [facility] Sex Assigned At Male [facility] Start: 03-07-2017 Tobacco use and exposure Smokeless tobacco non-user [facility] Start: 1950 Sex Assigned At Not on file [facility] Functional Status Date Assessment Result Facility 11-01-2022 Functional Status [facility] 11-01-2022 Functional Status [facility] 11-01-2022 Functional Status 100 [facility] 11-01-2022 Functional Status [facility] 11-01-2022 Functional Status Maintained [facility] 09-03-2022 Functional Status ID band on, Call device within reach, Bed in low position, Wheels locked, Upper/Half-Length side-rails up, Bedside Cart Locked, Safety level maintained [facility] 09-03-2022 Functional Status [facility] Mental Status Date Assessment Result Facility 11-01-2022 Mental Status Oriented x 4 [facility] 09-03-2022 Mental Status Oriented x 4 [facility] Clinical Notes 08-01-2021 to 11-01-2022 Note Date & Type Note Facility 11-01-2022 Hospital Discharg e instructions Patient Education 11/01/2022 15:12:07 3-- EP Study/Ablation (07/2018) (CUSTOM) ELECTROPHYSIOLOGY STUDY/ABLATION Discharge Instructions DIET INSTRUCTIONS Resume diet as prior to procedure ACTIVITIES Do not drive FOR 48 HOURS No heavy lifting GREATER THAN 10 POUNDS or pushing or straining FOR 5 DAYS BATHING/SHOWERING May tub bathe in 7 days Do not sit in hot tub, whirlpool, or swim for 7 days May shower tomorrow WOUND CARE You will go home with a dressing over your procedure site. Remove it in the morning and apply a Band-Aid. Keep this Band-Aid on for the next 24 hours and then remove it leaving the site open to air. Some degree of bruising and tenderness is normal around the procedure site. It will take a while for any bruising to completely resolve. Keep your site clean and dry. You need to report the following to your waste transportation technician: Any draining or oozing from the site Any swelling at the site Any increased pain or tenderness at the site Any numbness in your leg where the procedure was done Any sign of infection WATCH FOR SIGNS OF INFECTION: Elevated temperature above 100.5 Redness or swelling Increased pain Foul odor or drainage. If you have any questions, please call your doctor at the number listed on your follow up instructions. Follow all instructions given to you by your physician. Document Released: 09/23/2006 Document Revised: 09/09/2013 Document Reviewed: 09/24/2014 ExitCare Patient Information 2015 [employer] This information is not intended to replace advice given to you by your health care provider. Make sure you discuss any questions you have with your health care provider. 11/01/2022 11:44:34 General Anesthesia, Adult, Care After General Anesthesia, Adult, Care After This sheet gives you information about how to care for yourself after your procedure. Your health care provider may also give you more specific instructions. If you have problems or questions, contact your health care provider. What can I expect after the procedure? After the procedure, the following side effects are common: Pain or discomfort at the IV site. Nausea. Vomiting. Sore throat. Trouble concentrating. Feeling cold or chills. Weak or tired. Sleepiness and fatigue. Soreness and body aches. These side effects can affect parts of the body that were not involved in surgery. Follow these instructions at home: For at least 24 hours after the procedure: Have a responsible adult stay with you. It is important to have someone help care for you until you are awake and alert. Rest as needed. Do not: ?Participate in activities in which you could fall or become injured. ?Drive. ?Use heavy machinery. ?Drink alcohol. ?Take sleeping pills or medicines that cause drowsiness. ?Make important decisions or sign legal documents. ?Take care of children on your own. Eating and drinking Follow any instructions from your health care provider about eating or drinking restrictions. When you feel hungry, start by eating small amounts of foods that are soft and easy to digest (bland), such as toast. Gradually return to your regular diet. Drink enough fluid to keep your urine pale yellow. If you vomit, rehydrate by drinking water, juice, or clear broth. General instructions If you have sleep apnea, surgery and certain medicines can increase your risk for breathing problems. Follow instructions from your health care provider about wearing your sleep device: ?Anytime you are sleeping, including during daytime naps. ?While taking prescription pain medicines, sleeping medicines, or medicines that make you drowsy. Return to your normal activities as told by your health care provider. Ask your health care provider what activities are safe for you. Take utep-uxj-bslimle and prescription medicines only as told by your health care provider. If you smoke, do not smoke without supervision. Keep all follow-up visits as told by your health care provider. This is important. Contact a health care provider if: You have nausea or vomiting that does not get better with medicine. You cannot eat or drink without vomiting. You have pain that does not get better with medicine. You are unable to pass urine. You develop a skin rash. You have a fever. You have redness around your IV site that gets worse. Get help right away if: You have difficulty breathing. You have chest pain. You have blood in your urine or stool, or you vomit blood. Summary After the procedure, it is common to have a sore throat or nausea. It is also common to feel tired. Have a responsible adult stay with you for the first 24 hours after general anesthesia. It is important to have someone help care for you until you are awake and alert. When you feel hungry, start by eating small amounts of foods that are soft and easy to digest (bland), such as toast. Gradually return to your regular diet. Drink enough fluid to keep your urine pale yellow. Return to your normal activities as told by your health care provider. Ask your health care provider what activities are safe for you. This information is not intended to replace advice given to you by your health care provider. Make sure you discuss any questions you have with your health care provider. Document Released: 12/30/2001 Document Revised: 09/26/2018 Document Reviewed: 05/09/2018 [employer] Patient Education 2020 [employer]. Follow Up Care 09/25/2022 15:47:10 With:POPEYE CASTRO MD Address: [address] [facility] [address] [place] [address]- [phone] When:12/14/2022 09:00:00 [facility] 11-01-2022 Summary of episod e note Discharge Instructions Thank you for allowing Agency to assist you with your healthcare needs. The following is important discharge information regarding your hospital visit. Your Care Team AYDIN DAVID DO What to do next Scheduled Follow-Up Appointments Appointment Type When Where Contact InformationCV OV 12/14/2022 09:00 AM EST [facility] Follow Up Appointments Follow Up with POPEYE CASTRO MD When 12/14/2022 09:00 AM EST Where: [address] [facility] [address] [place] [address]- [phone] Allergies NKA Medications Please ask your primary doctor or pharmacist before taking any other medication not listed, including over the counter drugs, herbal medications, vitamins and or supplements as they may interact with your home medications. What How Much When Why Instructions Last Dose Unchanged allopurinol (allopurinol 300 mg oral tablet) 1 tab(s) by mouth Once a day Gout Gout Unchanged aspirin (aspirin 81 mg oral delayed release tablet) 1 tab(s) by mouth Once a day CAD IN [place] ARTERY HYPERTENSION, BENIGN ESSENTIAL Unchanged atorvastatin (atorvastatin 80 mg oral tablet) 1 tab(s) by mouth Once a day DYSLIPIDEMIA Unchanged colchicine (colchicine 0.6 mg oral tablet) 1 tab(s) by mouth Once a day Gout Unchanged dilTIAZem (Cardizem LA 180 mg/ 24 hours oral tablet, extended release) 1 tab(s) by mouth Once a day Unchanged lisinopril (lisinopril 2.5 mg oral tablet) 1 tab(s) by mouth Once a day HYPERTENSION, BENIGN ESSENTIAL Unchanged nitroGLYcerin (nitroglycerin 0.4 mg sublingual tablet) 1 tab(s) under the tongue Every 5 minutes as needed for for chest pain Unchanged traZODone (traZODone 150 mg oral tablet) 1 -2 tab(s) by mouth Daily at bedtime Insomnia Duration: 90 Days he may take 1-2 tabs/ night. Please fill for 2 tablets/ night Please take this list to your next doctor s visit. Bring all medications you take, including over the counter medications, herbals and other supplements with you to your doctor s visit. Patients and families are reminded to discard old lists and to update any records with all medication providers or retail pharmacies. Education Materials ELECTROPHYSIOLOGY STUDY/ABLATION Discharge Instructions DIET INSTRUCTIONS Resume diet as prior to procedure ACTIVITIES Do not drive FOR 48 HOURS No heavy lifting GREATER THAN 10 POUNDS or pushing or straining FOR 5 DAYS BATHING/SHOWERING May tub bathe in 7 days Do not sit in hot tub, whirlpool, or swim for 7 days May shower tomorrow WOUND CARE You will go home with a dressing over your procedure site. Remove it in the morning and apply a Band-Aid. Keep this Band-Aid on for the next 24 hours and then remove it leaving the site open to air. Some degree of bruising and tenderness is normal around the procedure site. It will take a while for any bruising to completely resolve. Keep your site clean and dry. You need to report the following to your waste transportation technician: Any draining or oozing from the site Any swelling at the site Any increased pain or tenderness at the site Any numbness in your leg where the procedure was done Any sign of infection WATCH FOR SIGNS OF INFECTION: Elevated temperature above 100.5 Redness or swelling Increased pain Foul odor or drainage. If you have any questions, please call your doctor at the number listed on your follow up instructions. Follow all instructions given to you by your physician. Document Released: 09/23/2006 Document Revised: 09/09/2013 Document Reviewed: 09/24/2014 ExitCare Patient Information 2015 [employer] This information is not intended to replace advice given to you by your health care provider. Make sure you discuss any questions you have with your health care provider. General Anesthesia, Adult, Care After This sheet gives you information about how to care for yourself after your procedure. Your health care provider may also give you more specific instructions. If you have problems or questions, contact your health care provider. What can I expect after the procedure? After the procedure, the following side effects are common: Pain or discomfort at the IV site. Nausea. Vomiting. Sore throat. Trouble concentrating. Feeling cold or chills. Weak or tired. Sleepiness and fatigue. Soreness and body aches. These side effects can affect parts of the body that were not involved in surgery. Follow these instructions at home: For at least 24 hours after the procedure: Have a responsible adult stay with you. It is important to have someone help care for you until you are awake and alert. Rest as needed. Do not: ? Participate in activities in which you could fall or become injured. ? Drive. ? Use heavy machinery. ? Drink alcohol. ? Take sleeping pills or medicines that cause drowsiness. ? Make important decisions or sign legal documents. ? Take care of children on your own. Eating and drinking Follow any instructions from your health care provider about eating or drinking restrictions. When you feel hungry, start by eating small amounts of foods that are soft and easy to digest (bland), such as toast. Gradually return to your regular diet. Drink enough fluid to keep your urine pale yellow. If you vomit, rehydrate by drinking water, juice, or clear broth. General instructions If you have sleep apnea, surgery and certain medicines can increase your risk for breathing problems. Follow instructions from your health care provider about wearing your sleep device: ? Anytime you are sleeping, including during daytime naps. ? While taking prescription pain medicines, sleeping medicines, or medicines that make you drowsy. Return to your normal activities as told by your health care provider. Ask your health care provider what activities are safe for you. Take dnjg-arx-vnhmcfu and prescription medicines only as told by your health care provider. If you smoke, do not smoke without supervision. Keep all follow-up visits as told by your health care provider. This is important. Contact a health care provider if: You have nausea or vomiting that does not get better with medicine. You cannot eat or drink without vomiting. You have pain that does not get better with medicine. You are unable to pass urine. You develop a skin rash. You have a fever. You have redness around your IV site that gets worse. Get help right away if: You have difficulty breathing. You have chest pain. You have blood in your urine or stool, or you vomit blood. Summary After the procedure, it is common to have a sore throat or nausea. It is also common to feel tired. Have a responsible adult stay with you for the first 24 hours after general anesthesia. It is important to have someone help care for you until you are awake and alert. When you feel hungry, start by eating small amounts of foods that are soft and easy to digest (bland), such as toast. Gradually return to your regular diet. Drink enough fluid to keep your urine pale yellow. Return to your normal activities as told by your health care provider. Ask your health care provider what activities are safe for you. This information is not intended to replace advice given to you by your health care provider. Make sure you discuss any questions you have with your health care provider. Document Released: 12/30/2001 Document Revised: 09/26/2018 Document Reviewed: 05/09/2018 [employer] Patient Education 2020 [employer]. Additional Information VACCINATE! IT SAVES LIVES! Members of the community who have not yet received the COVID-19 vaccine and would like to receive it can visit one of [facility] vaccine clinics. There are many vaccine clinic locations within the [facility]. For locations and available times, please visit [email or web address] [email or web address] It is important to note that some COVID mobile vaccine clinics are held outdoors and may be canceled in rainy or stormy conditions. To learn more about pediatric vaccinations (ages 5-11), we invite you to visit the [facility] webpage. [email or web address] To learn more about the COVID-19 vaccine, we invite you to visit the [facility] website for a list of frequently asked questions. [email or web address] [facility] Patient Portal Access Instructions: Stay connected with your healthcare team and access your personal medical information anytime with the [facility] Patient Portal.If you would like a full copy of your medical records, please contact the [facility] Medical Records Department, Saturday through Saturday between 8a.m. and 4:30p.m. Please follow the directions below to access the portal: 1.Access the email account you provided upon registration to the hospital.2.Look for an invitation email from [facility].3.Open the email and access the invitation link: Accept Invitation to [facility]4.Fill in the required rdz to create your account. Sign into [email or web address] with your username and password that you created in the above steps to stay up to date. You can then view a summary of results, a summary of your visits, and the ability to download your summaries to your computer or send the information securely to a physician. Remember that your healthcare information is confidential, so carefully consider who you will allow to register on the [facility] Patient Portal for access to your information. You can also access the [facility] Patient Portal on the [employer] megan. Simply click on Health Records under Health Data and then click on the D[employer] logo. HOW TO SAFELY DISPOSE OF PRESCRIPTION MEDICATIONS Please use one of the following methods to safely dispose of your unused medications. 1.Use a drug disposal kit: the drug disposal pouch allows you to safely discard your old and unused drugs. Ask your nurse to give you one when you are discharged.2.Visit a local take-back location: Many local pharmacies and police departments have programs that collect old and unwanted prescription drugs. Call your local pharmacy or go to http://bit.Nasty Gal/5J9It2j to find one close to you.3.Make use of household items: Use cat litter or old coffee grounds to dispose medications if other options are not available. Mix your drugs with these household products, seal them in an airtight container and throw it into the garbage. Call [facility]: [phone] to be sure your drugs can be disposed of in this way. Some medicines may require a different approach.4.Never flush your medications down the toilet. IF YOU HAVE BEEN PRESCRIBED AN OPIOID FOR PAIN If you have been prescribed an opioid (such as hydrocodone, oxycodone or morphine), it is critical to understand the possible side effects and risks of opioid pain medications. Even when taken as directed, opioids can have several side effects including: Tolerance, meaning you might need to take more of a medication for the same pain relief. Nausea, vomiting and/or constipation. Sleepiness, dizziness, dry mouth, confusion, depression or itching. Physical dependence, meaning you have withdrawal symptoms when a medication is stopped, can develop within a few days. KNOW YOUR RESPONSIBILITIES It is important to know exactly how much and how often to take the opioid pain medications you are prescribed. Never take opioids in higher amounts or more often than prescribed. Do not combine opioids with alcohol or other drugs that cause drowsiness, such as benzodiazepines, also known as benzos, including diazepam and alprazolam, muscle relaxants or sleep aids. Never sell or share prescription opioids. This is illegal. Store opioids in a secure place and out of reach of others (including children, family, friends and visitors). The last page of this document has been signed and retained as a CHART COPY. Signatures Patient Education Materials 3-- EP Study/Ablation (07/2018) (CUSTOM) General Anesthesia, Adult, Care After Medication Leaflets My discharge plan and instructions have been reviewed and explained to me and I,JACKI VALLE understand my current condition and have read and understand these discharge instructions. I have received a written copy of the plan/instructions. If I have questions, I am aware that I should contact my doctor. 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 He is here for ablation. Physical Exam Vitals and Measurements T: 36.6 C (Temporal Artery) HR: 54 RR: 16 BP: 150/92 SpO2: 95% HT: 182.9 cm WT: 114.2 kg BMI: 34.14BMI: 34.14 Weight Dosing Weight: 114.2 kg (11/01/22) General: Alert and oriented, no apparent distress CV: Regular rate and rhythm Pulm: No rales or wheezing Abd: Soft, nontender Ext: No clubbing, cyanosis, or edema Lab Results 11/01 06:16 WBC: 5.9 Hgb: 15.3 Hct: 44.8 Platelet: 184 Neutrophil %: 64.8 Protime: 11.7 PT International Ratio: 1.0 Glucose Level: 135 H Sodium Level: 143 Potassium Level: 4.4 BUN: 18.0 Creatinine Lvl (s): 1.17 Assessment/Plan Orders: IV Catheter Insertion/Care Prn Adapter Sign Consent Problem List/Past Medical History Ongoing Acute URI Anxiety Atypical chest pain Back pain, lumbosacral Bilateral knee pain BPV (benign positional vertigo) CAD IN [place] ARTERY CHEST DISCOMFORT DYSLIPIDEMIA Encounter for screening laboratory testing for COVID-19 virus Fatigue Gout Hip pain, bilateral Hypertension HYPERTENSION, BENIGN ESSENTIAL INCREASED BMI (Renamed from OVERWEIGHT) Insomnia Irritable bowel syndrome with diarrhea Knee pain, right Need for hepatitis C screening test Need for vaccination Obstructive sleep apnea Obstructive sleep apnea on CPAP Palpitations Polyarthralgia Pulmonary nodules Radicular pain of right lower extremity Radiculopathy due to lumbar intervertebral disc disorder Renal calculus, right S/P PTCA (percutaneous transluminal coronary angioplasty) Screening for colon cancer Screening for diabetes mellitus Screening for prostate cancer Septic bursitis Shoulder pain, right SVT (supraventricular tachycardia) Swelling of left elbow Historical Sore throat Strep pharyngitis Procedure/Surgical History Cardiovascular stress testin12/29/21 Cardiac catheterization: 08/01/21 Cardiovascular stress testin07/14/20 Echocardiogram: 07/14/20 EKG findin07/05/20 Back pain: 08/17/19 Placement of stent: 10/18/16 Cardiac catheterization, left heart: 10/18/16 Cardiovascular stress testin09/11/16 Holter monitor: 08/24/16 Thumb Knee joint Medications Home Medications (8) Active allopurinol 300 mg oral tablet 300 mg = 1 tab(s), Oral, qDay aspirin 81 mg oral delayed release tablet 81 mg = 1 tab(s), Oral, qDay atorvastatin 80 mg oral tablet 80 mg = 1 tab(s), Oral, qDay Cardizem LA 180 mg/24 hours oral tablet, extended release 180 mg = 1 tab(s), Oral, qDay colchicine 0.6 mg oral tablet 0.6 mg = 1 tab(s), Oral, qDay lisinopril 2.5 mg oral tablet 2.5 mg = 1 tab(s), Oral, qDay nitroglycerin 0.4 mg sublingual tablet 0.4 mg = 1 tab(s), PRN, Sublingual, q5min traZODone 150 mg oral tablet 1 -2 tab(s), Oral, qHS Allergies NKA Social History Smoking Status - 01/26/2017 Never smoker Alcohol - No Risk, 09/09/2018 Use: Never., 04/29/2019 Employment/School Status: Employed., 09/25/2022 Home/Environment Living situation: Home/Independent. Current Home Treatments Apnea monitoring. Professional Skilled Services or Special Community Resources None., 11/01/2022 Living situation: Home/Independent. Marital Status: ., 09/25/2022 Nutrition/Health Type of diet: Regular. Eating Difficulties None., 11/01/2022 Caffeine intake amount: 6 - 8 Pepsi daily., 12/13/2021 Substance Abuse - No Risk, 09/09/2018 Use: Never., 04/29/2019 Tobacco - No Risk, 09/09/2018 Nicotine Use: Never (less than 100 in lifetime). Exposure to Tobacco Smoke Lives in non-smoking home., 12/02/2019 Family History Allergic rhinitis: Sister. Anxiety: Sister. Asthma: Sister. Breast cancer: Sister. CAD - Coronary artery disease: Mother and Sister. Cancer: Sister. Diabetes: Mother and Father. Diabetes mellitus: Sister. HTN - Hypertension: Sister. Heart disease: Mother and Father. Stroke: Sister. Immunizations pneumococcal 13-valent conjugate vaccine: 0 unknown unit (12/03/17) pneumococcal 23-valent vaccine(Pneumovax: 0.5 unknown unit (02/01/22) SARS-CoV-2 mRNA (tozinameran) vaccine: 0.3 unknown unit (07/04/21) SARS-CoV-2 mRNA (tozinameran) vaccine: 0 unknown unit (12/25/20) SARS-CoV-2 mRNA (tozinameran) vaccine: 0 unknown unit (12/04/20) tetanus/diphth/pertuss (Tdap) adult/adol: 0 unknown unit (03/05/14) zoster vaccine, inactivated: 0.5 unknown unit (01/08/22) zoster vaccine, inactivated: 0 unknown unit (11/06/21) Code Status No qualifying data available. Digitally Signed by POPEYE CASTRO MD on 11/01/2022 07:47 AM [id number] An[facility]hes[facility] Consult note Patient: JACKI VALLE Age: 72 years Sex: Male : 1950 Associated Diagnoses: None Author: DARA MUJICA APRN-CLIFFORD Preoperative Information Time of last food or liquid consumption: 10/31/2022 21:00:00 Anesthesia history Patient's history: negative. Family's history: negative. Review of Systems Ear/Nose/Mouth/Throat: Negative except as documented in history of present illness. Respiratory: Negative except as documented in history of present illness. Cardiovascular: Negative except as documented in history of present illness. Gastrointestinal: Negative except as documented in history of present illness. Genitourinary: Negative except as documented in history of present illness. Endocrine: Negative except as documented in history of present illness. Musculoskeletal: Negative except as documented in history of present illness. Integumentary: Negative except as documented in history of present illness. Neurologic: Negative except as documented in history of present illness. Health Status Allergies: Allergic Reactions (Selected) NKA, Allergies (1) ActiveReaction NKANone Documented Current medications: (Selected) Prescriptions Prescribed allopurinol 300 mg oral tablet: 300 mg, 1 tab(s), Oral, qDay, 90 tab(s), 3 Refill(s) aspirin 81 mg oral delayed release tablet: 81 mg, 1 tab(s), Oral, qDay, 90 tab(s), 3 Refill(s) atorvastatin 80 mg oral tablet: 80 mg, 1 tab(s), Oral, qDay, 90 tab(s), 3 Refill(s) colchicine 0.6 mg oral tablet: 0.6 mg, 1 tab(s), Oral, qDay, 90 tab(s), 3 Refill(s) lisinopril 2.5 mg oral tablet: 2.5 mg, 1 tab(s), Oral, qDay, 90 tab(s), 3 Refill(s) nitroglycerin 0.4 mg sublingual tablet: 0.4 mg, 1 tab(s), Sublingual, q5min, PRN: for chest pain, 25 tab(s), 2 Refill(s) traZODone 150 mg oral tablet: 1 -2 tab(s), Oral, qHS, for 90 day(s), he may take 1-2 tabs/night. Please fill for 2 tablets/night, 180 tab(s), 3 Refill(s) Documented Medications Documented Cardizem LA 180 mg/24 hours oral tablet, extended release: 180 mg, 1 tab(s), Oral, qDay, 30 tab(s),0 Refill(s), No qualifying data available Problem list: Medical Acute URI / SNOMED CT 27765960 / Confirmed Anxiety / SNOMED CT 33937426 / Confirmed Atypical chest pain / SNOMED CT 095515903 / Confirmed Back pain, lumbosacral / SNOMED CT 575600870 / Confirmed HYPERTENSION, BENIGN ESSENTIAL / SNOMED CT 5585301 / Confirmed BPV (benign positional vertigo) / SNOMED CT 013120205 / Confirmed CHEST DISCOMFORT / SNOMED CT 663980984 / Confirmed CAD IN [place] ARTERY / SNOMED CT 3146481003 / Confirmed DYSLIPIDEMIA / SNOMED CT 4581569256 / Confirmed Fatigue / SNOMED CT 485638233 / Confirmed Gout / SNOMED CT [id number] / Confirmed Hip pain, bilateral / SNOMED CT 79187086 / Confirmed Hypertension / SNOMED CT [id number] / Confirmed Septic bursitis / SNOMED CT 182623020 / Confirmed Insomnia / SNOMED CT 207395685 / Confirmed Irritable bowel syndrome with diarrhea / SNOMED CT 075404866 / Confirmed Renal calculus, right / SNOMED CT 242226254 / Confirmed Knee pain, right / SNOMED CT 17715950 / Confirmed Bilateral knee pain / SNOMED CT 48007118 / Confirmed Polyarthralgia / SNOMED CT 130149886 / Confirmed Pulmonary nodules / SNOMED CT 6353805555 / Confirmed Obstructive sleep apnea on CPAP / SNOMED CT 959728128 / Confirmed Obstructive sleep apnea / SNOMED CT 119303868 / Confirmed INCREASED BMI (Renamed from OVERWEIGHT) / SNOMED CT 278333138 / Confirmed Palpitations / SNOMED CT 597021642 / Confirmed Encounter for screening laboratory testing for COVID-19 virus / SNOMED CT 874824559 / Confirmed Screening for colon cancer / SNOMED CT 220066042 / Confirmed Screening for prostate cancer / SNOMED CT 978918396 / Confirmed Screening for diabetes mellitus / SNOMED CT 517588180 / Confirmed S/P PTCA (percutaneous transluminal coronary angioplasty) / SNOMED CT 2624091080 / Confirmed Radicular pain of right lower extremity / SNOMED CT 04432807 / Confirmed Radiculopathy due to lumbar intervertebral disc disorder / SNOMED CT 8823781396 / Confirmed Need for vaccination / SNOMED CT 0601405551 / Confirmed Shoulder pain, right / SNOMED CT 42216321 / Confirmed SVT (supraventricular tachycardia) / SNOMED CT 91499938 / Confirmed Swelling of left elbow / SNOMED CT 5841289400 / Confirmed Need for hepatitis C screening test / SNOMED CT 330878440 / Confirmed, Active Problems (37) Acute URI Anxiety Atypical chest pain Back pain, lumbosacral Bilateral knee pain BPV (benign positional vertigo) CAD IN [place] ARTERY CHEST DISCOMFORT DYSLIPIDEMIA Encounter for screening laboratory testing for COVID-19 virus Fatigue Gout Hip pain, bilateral Hypertension HYPERTENSION, BENIGN ESSENTIAL INCREASED BMI (Renamed from OVERWEIGHT) Insomnia Irritable bowel syndrome with diarrhea Knee pain, right Need for hepatitis C screening test Need for vaccination Obstructive sleep apnea Obstructive sleep apnea on CPAP Palpitations Polyarthralgia Pulmonary nodules Radicular pain of right lower extremity Radiculopathy due to lumbar intervertebral disc disorder Renal calculus, right S/P PTCA (percutaneous transluminal coronary angioplasty) Screening for colon cancer Screening for diabetes mellitus Screening for prostate cancer Septic bursitis Shoulder pain, right SVT (supraventricular tachycardia) Swelling of left elbow Histories Past Medical History: Active Gout ([id number]) Hypertension ([id number]) Resolved Strep pharyngitis (34923216): Resolved. Sore throat (284878452): Resolved. Family History: Anxiety Sister Diabetes mellitus Sister Asthma Sister Breast cancer Sister Heart disease Mother Father Allergic rhinitis Sister Stroke Sister Cancer Sister HTN - Hypertension Sister CAD - Coronary artery disease Sister Mother Diabetes Mother Father Procedure history: Cardiovascular stress testing ([id number]) on 12/29/2021 at 71 Years. Comments: 06/12/2022 14:41 Suzanne Tan MA (ABR-OE) IMPRESSION: 1. No evidence for Lexiscan-induced ischemia. 2. Diaphragmatic attenuation artifact, otherwise no infarction. 3. Normal LV size and function. 4. Compared to previous study from 07/26/2020, similar quality study, no obvious ischemia. Cardiac catheterization ([id number]) on 08/01/2021 at 71 Years. Comments: 08/10/2021 16:26 Suzanne Tan MA (ABR-OE) Unchanged from previous cath in 2017, Proximal LAD stent patent. Echocardiogram ([id number]) on 07/14/2020 at 70 Years. Comments: 07/20/2020 12:50 Suzanne Tan MA (ABR-OE) EF 55-60%. The RV systolic pressure by Doppler is 12 mm Hg. The estimated right atrial pressure is 3 mm Hg. Cardiovascular stress testing ([id number]) on 07/14/2020 at 70 Years. Comments: 07/20/2020 12:53 Suzanne Tan MA (ABR-OE) Poor quality images cannot rule out mild severity small area of ischemia at distal/apical anteroseptal wall; no infarct. LVEF 62%. In 2016 patient had similar perfusion. EKG portion of Lexiscan is negative for inducible ischemia. EKG finding ([id number]) on 07/05/2020 at 70 Years. Comments: 07/20/2020 12:49 Suzanne Tan MA (ABR-OE) NSR Back pain ([id number]) on 08/17/2019 at 69 Years. Placement of stent ([id number]) on 10/18/2016 at 66 Years. Comments: 12/07/2019 14:57 EST - Yoko Salinas MA (ABR-OE) PCI with Xience Alpine stent proximal LAD Cardiac catheterization, left heart ([id number]) on 10/18/2016 at 66 Years. Cardiovascular stress testing ([id number]) on 09/11/2016 at 66 Years. Holter monitor ([id number]) on 08/24/2016 at 66 Years. Comments: 03/07/2020 16:07 EDT Yoko Villasenor MA (ABR-OE) 24 HOUR Knee joint ([id number]). Thumb (865851567). Social History Social & Psychosocial Habits Alcohol 09/09/2018Risk Assessment: No Risk 04/29/2019 Use: Never Employment/School 09/25/2022 Status: Employed Substance Abuse 09/09/2018Risk Assessment: No Risk 04/29/2019 Use: Never Tobacco 09/09/2018Risk Assessment: No Risk 12/02/2019 Tobacco Use: Never (less than 100 in l Exposure to Tobacco Smoke Lives in non-smoking home Home/Environment 09/25/2022 Living situation: Home/Independent Marital Status of Patient if Patient Independent Adult: 11/01/2022 Living situation: Home/Independent Current Home Treatments Apnea monitoring Special Services and Community Resources None Nutrition/Health 12/13/2021 Caffeine intake amount: 6 - 8 Pepsi daily 11/01/2022 Type of diet: Regular Eating Difficulties None . Physical Examination Vital Signs 11/01/2022 6:05 EST Temperature Temporal Artery 36.6 DegC Peripheral Pulse Rate 54 bpm LOW Respiratory Rate 16 br/min Systolic Blood Pressure Non-Invasive 150 mmHg HI Diastolic Blood Pressure Non-Invasive 92 mmHg HI Blood Pressure Method Automatic Blood Pressure Location Left arm Blood Pressure Cuff Size Medium Vital Signs(last 24 hrs) Last Charted Resp Rate 16 br/min (NOV 01 06:05) SBPH 150mmHg (NOV 01 06:05) DBPH 92mmHg (NOV 01 06:05) BMI34.14 (NOV 01 06:05) Measurements from flowsheet : Measurements 11/01/2022 6:05 EST Height 182.9 cm Admission Weight 114.2 kg Weight Method Actual [place] Body Weight 77.62 kg Body Mass Index 34.14 kg/m2 Body Mass Index 34.14 kg/m2 Pain assessment: Pain Assessment 11/01/2022 6:05 EST Primary Pain Intensity 0 Primary Pain Nonverbal Response Nods No Pain Scale Type 0-10 Pain scale . General: Alert and oriented. Airway: Normal neck range of motion. Mallampati classification: II (soft palate, fauces, uvula visible). Dentition Evaluation: Intact, Own teeth, Denies loose/chipped teeth. Neck: Full range of motion. Respiratory: Lungs are clear to auscultation. Cardiovascular: Normal rate. Heart Sounds: Normal. Gastrointestinal: Soft, Non-tender. Musculoskeletal Normal range of motion. Integumentary: Intact, Warm, Dry, [place]. Neurologic: Alert, Oriented. Review / Management Results review: Labs (Last four charted values) WBC 5.9(NOV 01) Hgb 15.3(NOV 01) Hct 44.8(NOV 01) Plt 184(NOV 01) Na 143(NOV 01) K 4.4(NOV 01) CO2 26(NOV 01) Cl 107(NOV 01) Cr 1.17(NOV 01) BUN 18.0(NOV 01) Glucose H 135(NOV 01) Ca 9.3(NOV 01) PT 11.7(NOV 01) INR 1.0(NOV 01) , Lab results 11/01/2022 6:16 EST WBC 5.9 10^3/mcL RBC 5.16 10^6/mcL Hgb 15.3 G/dL Hct 44.8 % MCV 86.8 fL MCH 29.6 pg MCHC 34.1 G/dL RDW 14.2 % Platelet 184 10^3/mcL MPV 7.2 fL Neutrophil % 64.8 % Lymphocyte % 21.9 % Monocyte % 7.7 % Eosinophil % 4.6 % Basophil % 1.0 % Neutrophil, Absolute 3.8 10^3/mcL Lymphocyte, Absolute 1.3 10^3/mcL Monocyte, Absolute 0.5 10^3/mcL Eosinophil, Absolute 0.3 10^3/mcL Basophil, Absolute 0.1 10^3/mcL Protime 11.7 seconds PT International Ratio 1.0 ratio NA Glucose Level 135 mg/dL HI Sodium Level 143 mEq/L Potassium Level 4.4 mEq/L Chloride 107 mEq/L CO2 26 mEq/L Electrolyte Balance 10.0 mEq/L BUN 18.0 mg/dL Creatinine Lvl (s) 1.17 mg/dL BUN/Creatinine Ratio 15.4 ratio Calcium Lvl 9.3 mg/dL GFR Non- >60 ml/min/1.73sqm NA GFR >60 ml/min/1.73sqm NA Creatinine Clearance Calc 64.50 mL/min 11/01/2022 6:15 EST SN - Preop - CTm - Pt in HL SD Room 11/01/2022 5:45 SN - Preop - CTm - HL Pt Ready for Procedure 11/01/2022 6:14 11/01/2022 6:13 EST IV Present Present Hand Left 11/01/2022 20 gauge Peripheral IV Activity: Insert new site Peripheral IV Dressing Condition: Clean, Dry, Intact Peripheral IV Dressing Activity: Applied, Transparent dressing Peripheral IV Line Status/Patency: Flushes easily, Good blood return Peripheral IV Line Care: Secured with tape Peripheral IV Site Condition: No complications Peripheral IV Equipment: PRN Adaptor Peripheral IV Number of Attempts: 1 Allergies No Consent Form Signed Yes Patient Dressed In Hospital gown Pre-op Preparation Undergarments removed History & Physical Update On Chart Yes History & Physical On Chart Yes Obstructive Sleep Apnea Assess Completed Yes NPO Status Maintained Allergy Band on and Verified No Patient ID Band on and Verified Yes Last Fluid Intake 10/31/2022 19:00 Last Food Intake 10/31/2022 19:00 Last Void 11/01/2022 6:14 11/01/2022 6:05 EST Designated Person #1 We May Share PHI Isabel Valle- - [phone] Designated Person #1 Relationship Spouse Designated Person #2 We May Share PHI Davidson Valle Designated Person #2 Relationship Son Additional Designated Person Share PHI Additional Designated Person Share PHI Privacy Restrictions Requested None Height 182.9 cm Admission Weight 114.2 kg Weight Method Actual [place] Body Weight 77.62 kg Body Mass Index 34.14 kg/m2 Body Mass Index 34.14 kg/m2 Temperature Temporal Artery 36.6 DegC Peripheral Pulse Rate 54 bpm LOW Respiratory Rate 16 br/min Systolic Blood Pressure Non-Invasive 150 mmHg HI Diastolic Blood Pressure Non-Invasive 92 mmHg HI Blood Pressure Method Automatic Blood Pressure Location Left arm Blood Pressure Cuff Size Medium Primary Pain Intensity 0 Primary Pain Nonverbal Response Nods No Pain Scale Type 0-10 Pain scale Nail Bed Color [place] Capillary Refill < 2 seconds Jugular Venous Distention Absent at 45 degrees Dorsalis Pedis Pulse, Left 2+ Normal Dorsalis Pedis Pulse, Right 2+ Normal Posttibial Pulse, Left 2+ Normal Posttibial Pulse, Right 2+ Normal Respirations Unlabored Respiratory Pattern Regular Breath Sounds Auscultated Anterior and posterior All Lobes Breath Sounds Clear Cough and Deep Breathe Done Cough None Oxygen Therapy Room air Oxygen Saturation 95 % Abdomen Description Non-distended, Soft Abdomen Palpation Non-Tender Bowel Sounds All Quadrants Present Urinary Elimination Voiding, no difficulties Status N/A Facial Movement Symmetric resting/crying All Extremity Description [place] Skin Temperature Warm Temperature All Extremities Warm Skin Description [place], Dry Skin Integrity Intact Skin Turgor Non-Elastic Mucous Membrane Color [place] Mucous Membrane Description Moist Neurological Language Able to speak clearly Neurological Symptoms Patient denies Gait Steady Extremity Movement Equal Swallowing Difficulty None Characteristics of Communication Appropriate Characteristics of Speech Clear Facial Symmetry Symmetric Level of Consciousness Alert Aspiration Risk None OZ Yes Left Pupil Description Regular, Round Right Pupil Description Regular, Round Left Pupil Reaction Brisk Right Pupil Reaction Brisk Pupil Size, Left 3 mm Pupil Size, Right 3 mm Strength All Extremities Strong CN V Facial Sensation Corneal reflex present CN VII Facial Expression and Symmetry Facial movement symmetrical CN IX, X Swallowing, Gag Reflex Swallowing present Affect/Behavior Appropriate, Calm, Cooperative Orientation Oriented x 4 Sensory Deficits Hearing deficit, left ear, Hearing deficit, right ear Sleep Apnea Snore No Sleep Apnea Tired No Sleep Apnea Obstruction Yes Sleep Apnea Pressure No Sleep Apnea BMI No Sleep Apnea Age Yes Sleep Apnea Neck No Sleep Apnea Gender Yes Sleep Apnea Score 3 High Risk for Sleep Apnea No Diagnosed With Sleep Apnea Yes, Patient instructed to bring cpap machine to hospital Advanced Directives Unable to obtain Infectious Disease Symptoms Patient states no symptoms Infectious Disease Recent Exposure No Alcohol and Drug Use No Employee of Institutional Living No Health Care Employee No History of Exposure to TB No History of Positive Chest X-Ray for TB No History of Positive TB Skin Test No Homeless No Known Immunosuppression No Recent Immigrant No Resident of Institutional Living No Bloody Sputum No Fatigue No Fever No Loss of Appetite No Night Sweats No Persistent Cough > 3 Weeks No Weight Loss No Safety Brochure Information Reviewed Yes Dali Higginbotham Video Viewed Patient refused Individuals Taught Patient, Spouse Learning Readiness Willing to learn Barriers to Learning None evident Teaching Method Explanation, Printed materials, Teach-back Teaching Evaluation Verbalizes/Nonverbally indicates understanding Preferred Written Language Albanian Preferred Spoken Language Albanian Pre Procedure/Surgery Education Appropriate expectations, Bring glasses, hearing aids, contact lenscase, Date/Time of procedure/surgery, Hospital gown requirement worn to OR, NPO, Responsible driverfor discharge Incision/Wound Care Education Hand hygiene Post op Activity Education Bedrest Procedure/Surgical Teaching Evaluation Verbalizes/Nonverbally indicates understanding Procedure/Surgery Testing Education Lab tests Information Given by Patient Patient's Current Physicians Patient's Current Physicians Belongings At Bedside Coat, Hearing aid, left, Hearing aid, right, Pants, Shirt, Shoes, Socks, Undergarments, Wallet, Pt participated in reconciliation, Other: black bag with extra clothing Discharge To, Anticipated Home independently Prev Test Positive/Diagnosis w/COVID-19 No Current Quarantine/Isolated any Illness No Any Contact with Sick Animals/Birds No Traveled Anywhere in Last 30 Days No Lost Weight Unintentionally Recently No Eat Poorly Due to Decreased Appetite No Total MST Score 0 N/A Personal Devices, Patient Valuables Hearing aid, left, Hearing aid, right Anesthesia/Transfusions Prior anesthesia Admission Note-Nursing Same Day Patient History . Assessment and Plan [place] [employer] Anesthesiologists (ASA) physical status classification: Class III. Anesthetic Preoperative Plan Premedication: intravenous. Anesthetic technique: MAC. Induction: intravenously. Maintenance airway: Mask. Risks discussed: nausea, vomiting, headache, sore throat, dental injury, hypotension, allergic reaction, serious complications. Informed consent: signed by patient. Notes: CAD stent 2021; SVT; NATHALIA; HTN. Beta Fredy: Beta Fredy Taken Within 24 Hrs: No. Digitally Signed by DARA MUJICA on 11/01/2022 07:47 AM [id number] Discharge instructions Patient Education 09/03/2022 22:27:59 Understanding Tachycardia Understanding Tachycardia The heart has an electrical system that sends signals to control the heartbeat. Any abnormal changein the speed or pattern of the heartbeat is called an arrhythmia. If you have an arrhythmia that causes the heart to beat faster than normal, this is known as tachycardia. There are many types of tachycardia. They can affect the heart s upper chambers (atria), the heart s lower chambers (ventricles), or both. What causes tachycardia? Many things can cause tachycardia, including: Damage to heart tissue from heart disease, past heart attack, or heart surgery Abnormal electrical pathways in the heart Problems with the heart s structure that you are born with High blood pressure Overactive thyroid Use of certain medicines Severe blood loss or anemia Dehydration Severe stress, fear, or anxiety Smoking Too much alcohol or caffeine Abuse of certain street drugs, such as cocaine Infections Certain inflammatory conditions Chronic pain syndromes What are the symptoms of tachycardia? Tachycardia can cause a fast, pounding, or irregular heartbeat. It can also make it harder for the heart to pump blood efficiently to the body. This may cause symptoms such as: Shortness of breath Tiredness Dizziness or fainting Chest pain Some people with tachycardia may have no symptoms at all. How is tachycardiatreated? Treatment for tachycardia depends on the cause. It also depends on the type you have and how severeyour symptoms are. Tachycardia in the ventricles is often more serious than in the atria. For this reason, it may need to be treated right away. Possible treatments include: Treating the underlying cause. For instance, if a medicine is causing your tachycardia, changing the dosage or stopping the medicine with your doctor s guidance may correct the problem. Lifestyle changes. These include getting enough sleep and reducing stress. They also include avoiding caffeine, alcohol, tobacco, and street drugs. Vagal maneuvers.These are techniques that may help interrupt a fast heartbeat and slow it down. Oneexample is to take a deep breath and bear down hard while holding your breath. Medicines. These may be used to help slow down a fast heartbeat. They may also be used to regulate the pattern of the heartbeat. Electrical cardioversion. Special pads or paddles are used to send one or more brief electrical shocks to the heart. This can help restore the heartbeat to normal. Ablation. A long thin tube called a catheter is inserted into a blood vessel and threaded to the heart. The catheter sends out hot or cold energy to the areas causing abnormal signals. This destroys the problem tissue or cells. This may stop certain types of tachycardia. Pacemaker. This is a device that is placed just under the skin in the chest. It sends paced signalsto make the heart beat at a more normal rate and rhythm. You may need this when certain medicines that treat tachycardia also result in a slow heart rate. Implantable cardioverter defibrillator (ICD). This is a device that is placed just under the skin in the chest or armpit. The ICD monitors your heart rate. When needed, it sends controlled burst of signals to the heart to overdrive a tachycardia. It can also send a single stronger shock to the heart to stop a life-threatening type of tachycardia, if needed. Surgery. During surgery, different techniques may be used to create scar tissue in the areas of theheart causing abnormal signals. This may help stop certain types of tachycardia. What are the complications of tachycardia? These can include: Blood clots or stroke Heart failure. With this problem, the heart muscle is so weak it no longer pumps blood well. Fainting Sudden cardiac arrest. This is when the heart suddenly stops beating. When should I call my healthcare provider? Call your healthcare provider right away if you have any of these: Symptoms that don t get better with treatment, or get worse New symptoms [phone] [employer]. [address] [place] [address]. All rights reserved. This information is not intended as a substitute for professional medical care. Always follow yourhealthcare professional's instructions. Follow Up Care 09/03/2022 19:01:39 With:AYDIN DAVID DO Address: [address] [place] [address] [phone] When:2-4 days [facility] 11-28-2022 Emergency department Discharge summary Discharge Instructions Thank you for allowing Agency to assist you with your healthcare needs. The following is importantdischarge information regarding your hospital visit. Diagnosis from Today's Visit SVT - Supraventricular tachycardia Chest pain Heart rate fast What to Do Next Instructions from Your Care Team No qualifying data available. Post Acute Orders No qualifying data available. You Need to Schedule the Following Appointments Follow Up with AYDIN DAVID DO When Within 2-4 days Where: [address] [place] [address] [phone] Allergies NKA Medications Please ask your primary doctor or pharmacist before taking any other medication not listed, including over the counter drugs, herbal medications, vitamins and or supplements as they may interact withyour home medications. What How Much When Why Instructions Last Dose Changed dilTIAZem (Cardizem LA 180 mg/ 24 hours oral tablet, extended release) 1 tab(s) by mouth Once a day SVT - Supraventricular tachycardia Printed Prescription Changed dilTIAZem (DilTIAZem (Eqv-Cardizem CD) 120 mg/ 24 hours oral capsule, extended release) 1 cap Unchanged allopurinol (allopurinol 300 mg oral tablet) 1 tab(s) by mouth Once a day Gout Gout Unchanged aspirin (aspirin 81 mg oral delayed release tablet) 1 tab(s) by mouth Once a day CAD IN [place] ARTERY HYPERTENSION, BENIGN ESSENTIAL Unchanged atorvastatin (atorvastatin 80 mg oral tablet) 1 tab(s) by mouth Once a day DYSLIPIDEMIA Unchanged colchicine (colchicine 0.6 mg oral tablet) 1 tab(s) by mouth Once a day Gout Unchanged lactobacillus acidophilus (Acidophilus oral capsule) 1 cap by mouth Once a day Duration: 30 Days Unchanged lisinopril (lisinopril 2.5 mg oral tablet) 1 tab(s) by mouth Once a day HYPERTENSION, BENIGN ESSENTIAL Unchanged nitroGLYcerin (nitroglycerin 0.4 mg sublingual tablet) 1 tab(s) under the tongue Every 5 minutes as needed for for chest pain Unchanged traZODone (traZODone 150 mg oral tablet) 1 -2 tab(s) by mouth Daily at bedtime Insomnia Duration: 90 Days he may take 1-2 tabs/ night. Please fill for 2 tablets/ night Please take this list to your next doctor s visit. Bring all medications you take, including over the counter medications, herbals and other supplements with you to your doctor s visit. Patients and families are reminded to discard old lists and to update any records with all medication providers or retail pharmacies. Education Materials Understanding Tachycardia The heart has an electrical system that sends signals to control the heartbeat. Any abnormal changein the speed or pattern of the heartbeat is called an arrhythmia. If you have an arrhythmia that causes the heart to beat faster than normal, this is known as tachycardia. There are many types of tachycardia. They can affect the heart s upper chambers (atria), the heart s lower chambers (ventricles), or both. What causes tachycardia? Many things can cause tachycardia, including: Damage to heart tissue from heart disease, past heart attack, or heart surgery Abnormal electrical pathways in the heart Problems with the heart s structure that you are born with High blood pressure Overactive thyroid Use of certain medicines Severe blood loss or anemia Dehydration Severe stress, fear, or anxiety Smoking Too much alcohol or caffeine Abuse of certain street drugs, such as cocaine Infections Certain inflammatory conditions Chronic pain syndromes What are the symptoms of tachycardia? Tachycardia can cause a fast, pounding, or irregular heartbeat. It can also make it harder for the heart to pump blood efficiently to the body. This may cause symptoms such as: Shortness of breath Tiredness Dizziness or fainting Chest pain Some people with tachycardia may have no symptoms at all. How is tachycardiatreated? Treatment for tachycardia depends on the cause. It also depends on the type you have and how severeyour symptoms are. Tachycardia in the ventricles is often more serious than in the atria. For this reason, it may need to be treated right away. Possible treatments include: Treating the underlying cause. For instance, if a medicine is causing your tachycardia, changing the dosage or stopping the medicine with your doctor s guidance may correct the problem. Lifestyle changes. These include getting enough sleep and reducing stress. They also include avoiding caffeine, alcohol, tobacco, and street drugs. Vagal maneuvers.These are techniques that may help interrupt a fast heartbeat and slow it down. Oneexample is to take a deep breath and bear down hard while holding your breath. Medicines. These may be used to help slow down a fast heartbeat. They may also be used to regulate the pattern of the heartbeat. Electrical cardioversion. Special pads or paddles are used to send one or more brief electrical shocks to the heart. This can help restore the heartbeat to normal. Ablation. A long thin tube called a catheter is inserted into a blood vessel and threaded to the heart. The catheter sends out hot or cold energy to the areas causing abnormal signals. This destroys the problem tissue or cells. This may stop certain types of tachycardia. Pacemaker. This is a device that is placed just under the skin in the chest. It sends paced signalsto make the heart beat at a more normal rate and rhythm. You may need this when certain medicines that treat tachycardia also result in a slow heart rate. Implantable cardioverter defibrillator (ICD). This is a device that is placed just under the skin in the chest or armpit. The ICD monitors your heart rate. When needed, it sends controlled burst of signals to the heart to overdrive a tachycardia. It can also send a single stronger shock to the heart to stop a life-threatening type of tachycardia, if needed. Surgery. During surgery, different techniques may be used to create scar tissue in the areas of theheart causing abnormal signals. This may help stop certain types of tachycardia. What are the complications of tachycardia? These can include: Blood clots or stroke Heart failure. With this problem, the heart muscle is so weak it no longer pumps blood well. Fainting Sudden cardiac arrest. This is when the heart suddenly stops beating. When should I call my healthcare provider? Call your healthcare provider right away if you have any of these: Symptoms that don t get better with treatment, or get worse New symptoms [phone] [employer]. [address] [place] [address], [place] [address]. All rights reserved. This information is not intended as a substitute for professional medical care. Always follow yourhealthcare professional's instructions. Additional Information VACCINATE! IT SAVES LIVES! Members of the community who have not yet received the COVID-19 vaccine and would like to receive it can visit one of [facility] vaccine clinics. There are many vaccine clinic locations within the [facility]. For locations and available times, please visit [email or web address]. It is important to note that some COVID mobile vaccine clinics are held outdoors and may be canceled in rainy orstormy conditions. To learn more about pediatric vaccinations (ages 5-11), we invite you to visit the [facility] webpage. [email or web address] [email or web address] learn more about the COVID-19 vaccine, we invite you to visit the Agency website for a list of frequently asked questions. [email or web address] [facility] Patient Portal Access Instructions: Stay connected with your healthcare team and access your personal medical information anytime with the Agency [employer] Patient Portal. If you would like a full copy of your medical records please contact the [facility] Medical Records Department Saturday through Saturday between 8a.m. and 4:30p.m. Please follow the directions below to access the portal: 1.Access the email account you provided upon registration to the hospital.2.Look for an invitation email from [facility].3.Open the email and access the invitation link: Accept Invitation to [facility]4.Fill in the required rdz to create your account. Sign into [email or web address] with your username and password that you created in the above steps to stay up to date. You can then view a summary of results, a summary of your visits, and the ability to download your summaries to your computer or send the information securely to a physician. Remember that your healthcare information is confidential, so carefully consider who you will allow to register on the Agency [employer] Patient Portal for access to your information. You can also access the [employer] Patient Portal on the [employer]. Simply click on Health Records under M.dot and then click on the [employer] logo. HOW TO SAFELY DISPOSE OF PRESCRIPTION MEDICATIONS Please use one of the following methods to safely dispose of your unused medications. 1.Use a drug disposal kit: the drug disposal pouch allows you to safely discard your old and unuseddrugs. Ask your nurse to give you one when you are discharged.2.Visit a local take-back location: Many local pharmacies and police departments have programs that collect old and unwanted prescriptiondrugs. Call your local pharmacy or go to http://optionsXpress.Nasty Gal/3B8Yb4w to find one close to you.3.Make use of household items: Use cat litter or old coffee grounds to dispose medications if other options arenot available. Mix your drugs with these household products, seal them in an airtight container andthrow it into the garbage. Call [facility]: [phone] to be sure your drugs can be disposed of in this way. Some medicines may require a different approach.4.Never flush your medications down the toilet. IF YOU HAVE BEEN PRESCRIBED AN OPIOIDS FOR PAIN If you have been prescribed an opioid (such as hydrocodone, oxycodone or morphine), it is critical to understand the possible side effects and risks of opioid pain medications. Even when taken as directed, opioids can have several side effects including: Tolerance, meaning you might need to take more of a medication for the same pain relief. Nausea, vomiting and/or constipation. Sleepiness, dizziness, dry mouth, confusion, depression or itching. Physical dependence, meaning you have withdrawal symptoms when a medication is stopped ? this can develop within a few days. KNOW YOUR RESPONSIBILITIES It is important to know exactly how much and how often to take the opioid pain medications you are prescribed. Never take opioids in higher amounts or more often than prescribed. Do not combine opioids with alcohol or other drugs that cause drowsiness, such as benzodiazepines, also known as benzos,including diazepam and alprazolam, muscle relaxants or sleep aids. Never sell or share prescriptionopioids. This is illegal. Store opioids in a secure place and out of reach of others (including children, family, friends and visitors). The last page(s) of this document has been signed and retained as a CHART COPY Signatures Patient Education Materials Understanding Tachycardia Medication Leaflets My discharge plan and instructions have been reviewed and explained to me and I,JACKI VALLE understand my current condition and have read and understand these discharge instructions. I have received a written copy of the plan/instructions. If I have questions, I am aware that I should contact my doctor. 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 There is no focal consolidation. There is no pulmonary edema. There is no evidence of pleural effusion. There is no evidence of pneumothorax. No fracture is identified. IMPRESSION: No acute abnormality is identified. Interpreted by: José Miguel Mendez Preliminary Report By: José Miguel Mendez Electronically signed By José Miguel Mendez Dictated Date: 09/03/2022 8:54:46 PM Prelim Date: 09/03/2022 8:55:16 PM Sign Date: 09/03/2022 8:55:16 PM Ordering Provider: ROSA [facility]11-28-2022 Note ORIGINAL EXAMINATION: ONE XRAY VIEW OF THE CHEST 09/03/2022 8:19 pm COMPARISON: Chest radiograph 07/09/2021 HISTORY: ORDERING SYSTEM PROVIDED HISTORY: Reason for Exam: chest pain FINDINGS: The cardiomediastinal silhouette appears normal. There is no focal consolidation. There is no pulmonary edema. There is no evidence of pleural effusion. There is no evidence of pneumothorax. No fracture is identified. IMPRESSION: No acute abnormality is identified. Interpreted by: José Miguel Mendez Preliminary Report By: José Miguel Mendez Electronically signed By José Miguel Mendez Dictated Date: 09/03/2022 8:54:46 PM Prelim Date: 09/03/2022 8:55:16 PM Sign Date: 09/03/2022 8:55:16 PM Ordering Provider: ROS[facility] Discharge instructions Patient Education 08/01/2021 09:40:23 Moderate Conscious Sedation, Adult, Care After Moderate Conscious Sedation, Adult, Care After These instructions provide you with information about caring for yourself after your procedure. Your health care provider may also give you more specific instructions. Your treatment has been plannedaccording to current medical practices, but problems sometimes occur. Call your health care provider if you have any problems or questions after your procedure. What can I expect after the procedure? After your procedure, it is common: To feel sleepy for several hours. To feel clumsy and have poor balance for several hours. To have poor judgment for several hours. To vomit if you eat too soon. Follow these instructions at home: For at least 24 hours after the procedure: Do not: ?Participate in activities where you could fall or become injured. ?Drive. ?Use heavy machinery. ?Drink alcohol. ?Take sleeping pills or medicines that cause drowsiness. ?Make important decisions or sign legal documents. ?Take care of children on your own. Rest. Eating and drinking Follow the diet recommended by your health care provider. If you vomit: ?Drink water, juice, or soup when you can drink without vomiting. ?Make sure you have little or no nausea before eating solid foods. General instructions Have a responsible adult stay with you until you are awake and alert. Take [id number] and prescription medicines only as told by your health care provider. If you smoke, do not smoke without supervision. Keep all follow-up visits as told by your health care provider. This is important. Contact a health care provider if: You keep feeling nauseous or you keep vomiting. You feel light-headed. You develop a rash. You have a fever. Get help right away if: You have trouble breathing. This information is not intended to replace advice given to you by your health care provider. Make sure you discuss any questions you have with your health care provider. Document Released: 07/14/2014 Document Revised: 09/05/2018 Document Reviewed: 01/12/2017 [employer] Patient Education 2020 [employer]. 08/01/2021 09:15:55 3- Heart Cath/PCI radial (07/2018) (CUSTOM) HEART CATHETERIZATION/PCI (radial) Discharge Instructions DIET Drink plenty of fluids for the next 48 hours to help your kidneys flush the heart cath dye out of your system ACTIVITY For the next 48 hours: Do not deep bend the wrist Do not lift, push, or pull anything over 5 pounds Do not use the hand/arm to support your weight when rising from a chair or bed Do not drive For the next 7 days: Do not submerse your procedure site in water Do not swim, wash dishes, or take tub baths You may write, eat, type, and shower WOUND CARE Keep a Band-Aid on your procedure site for the next 3-4 days Change the Band-Aid daily or if it gets wet/soiled AFTER YOU GO HOME, CALL YOUR DOCTOR FOR: Any increase in bruising or tenderness from the procedure site Any redness, pus, or other signs of infection at the site A temperature above 100.5 Severe pain at the site DIAL 911 AND RETURN TO THE HOSPITAL FOR: Any bleeding from the procedure site. The site may be bruised or tender, but it should not be bleeding at any time. If your site begins to bleed, hold firm pressure on it and dial 911 to return to the hospital Any increase in swelling at the procedure site. An increase in swelling could mean the area is bleeding under the skin. Hold firm pressure to the site and dial 911 to return to the hospital Document Released: 09/23/2006 Document Revised: 09/09/2013 Document Reviewed: 09/24/2014 [employer] Patient Information 2015 [employer] This information is not intended to replace advicegiven to you by your health care provider. Make sure you discuss any questions you have with your health care provider. Follow Up Care 07/18/2021 11:08:07 With:DOUGLAS CUENCA MD Address: [address] [place] [address] [address] [place] [address]- [phone] When:08/16/2021 09:30:00 [facility] evaluation + Plan note Future Appointments Appointment Date:08/01/2021 07:00:00 AM Scheduled Provider: Location:Heart Lab Appointment Type:CV Procedure - Heart Lab/Hybrid OR Appointment Date:08/16/2021 09:30:00 AM Scheduled Provider: Location:[facility] Appointment Type:CV OV Future Scheduled Tests Laboratory* Thyroid Stimulating Hormone 10/21/20 * Lipid Profile 10/21/20 * Complete Metabolic Panel 10/21/20 [facility] evaluation + Plan note Future Appointments Appointment Date:08/16/2021 09:30:00 AM Scheduled Provider: Location:[facility] Appointment Type:CV OV Future Scheduled Tests Laboratory* Thyroid Stimulating Hormone 10/21/20 * Lipid Profile 10/21/20 * Complete Metabolic Panel 10/21/20 [facility] Evaluation + Plan note Future Appointments Appointment Date:01/24/2022 08:30:00 AM Scheduled Provider:AYDIN DAVID DO Location:[facility] Appointment Type:PC OV [facility] Evaluation + Plan note Future Appointments Appointment Date:09/04/2022 09:20:00 AM Scheduled Provider:TREV WOODWARD Location:[facility] Appointment Type:PC OV [facility] Evaluation + Plan note Future Appointments Appointment Date:09/25/2022 03:15:00 PM Scheduled Provider: Location:[facility] Appointment Type:CV WOOD POLE TREATER [facility] Hospital course Narrative No data available for this section [facility] Hospital Discharge instructions No data available for this section [facility] Note* ROSA YODER DO: SIGN, VERIFY Event Display: EKG [ED AOH] - CV Authored Date: * ROSA YODER DO: SIGN, VERIFY Event Display: EKG [ED AOH] - CV Authored Date: [facility] Note* ASHLEY BRIGHT MD: SIGN, VERIFY Event Display: VL Carotid US/Doppler Complete AOH [facility] Noty* SYSTEM: SIGN, VERIFY Event Display: Ablation RF-CARTO - CV Authored Date: [facility] Progress note No data available for this section [facility] Summary Purpose Family History No Family History Records FoundNo Family History Records Found Advance Directives No Advanced Directives Records FoundNo Advanced Directives Records Found Additional Source Comments Source Comments (unrecognize d section and content) In the event this informatio n is protected by the Federal Confidentiality of Alcohol and Drug Abuse Patient Records regulations: The Federal rules restrict any use of the information to criminally investigate or prosecute any alcohol or drug abuse patient.[facility] the event this information is protected by the Federal Confidentiality of Alcohol and Drug Abuse Patient Records regulations: The Federal rules restrict any use of the information to criminally investigate or prosecute any alcohol or drug abuse patient.[facility] (unrecognized sect ion and content) No Status Records FoundNo Status Records Found INFORMATION SOURCE (unrecogn ized section and content) DATE CREATED AUTHOR AUTHOR'S ORGANVALERIE ATION 10/14/2023 [facility] ([place]) Care Team (unrecognized sect ion and content) Care Team Personnel Name: Bernardo Brambila PT Position: P3 Scheduling - Clinical Material Handler Advanced Member Role: Other Name: AYDIN DAVID DO Position: P4 Physician - Primary Care Member Role: Primary Care Physician Address: Address: [address] [place] [address] Name: FE MARTINEZ MD Member Role: Group President Address: Address: [address] [place] [address] [address] [address]- Care Team Related Persons Name: WILFRED VALLE Care Team Personnel Name: Bernardo Brambila PT Position: P3 Scheduling - Clinical Material Handler Advanced Member Role: Other Name: AYDIN DAVID DO Position: P4 Physician - Primary Care Member Role: Primary Care Physician Address: Address: [address] [place] [address] Name: FE MARTINEZ MD Member Role: Group President Address: Address: [address] [place] [address] [address] [place] [address]- Name: ROSA YODER DO Position: ED Physician Member Role: ED Physician Address: Address: [address] [place] [address] [place] [id number]- Name: Sole Cardenas RN Position: ED RN Member Role: ED RN Name: DON KAT DO Position: Resident Member Role: ED Physician Address: Address: [address] [place] [address] ED Resident [address] Care Team Related Persons Name: WILFRED VALLE Care Team Personnel Name: Bernardo Brambila Clerk Abby PT Position: P3 Scheduling - Clinical Material Handler Advanced Member Role: Other Name: AYDIN DAVID DO Position: P4 Physician - Primary Care Member Role: Primary Care Physician Address: Address: [address] [place] [address] Name: FE MARTINEZ MD Member Role: Group President Address: Address: [address] [place] [address] [address] [place] [address]- Care Team Related Persons Name: WILFRED VALLE Care Team Personnel Name: Bernardo Brambila Clerk Abby PT Position: P3 Scheduling - Clinical Material Handler Advanced Member Role: Other Name: AYDIN DAVID DO Position: P4 Physician - Primary Care Member Role: Primary Care Physician Address: Address: [address] [place] [address] Name: FE MARTINEZ MD Member Role: Group President Address: Address: [address] [place] [id number] Care Team Related Persons Name: WILFRED VALLE FOR RECORDS PERTAINING TO PATIENTS WHO ARE OR HAVE BEEN ENROLLED IN A CHEMICAL DEPENDENCY/SUBSTANCEABUSE PROGRAM, SOME INFORMATION MAY BE OMITTED. This clinical summary was aggregated from multiple sources. Caution should be exercised in using it in the provision of clinical care. This summary normalizes information from multiple sources, and as a consequence, information in this document may materially change the coding, format and clinical context of patient data. In addition, data may be omitted in some cases. CLINICAL DECISIONS SHOULD BE BASED ON THE PRIMARY CLINICAL RECORDS. [facility] [employer] [facility]. provides no warranty or guarantee of the accuracy or completeness of information in this document.
[2023-10-31 15:27] LABS: Absolute Lymphocyte Count 1.41 X10^3/uL (0.83-4.51); Absolute Neutrophil Count 4.9 X10^3/uL (2.0-7.7); Basophil# 0.06 X10^3/uL; Basophil% 0.9 % (0-1); Eosinophils% 1.4 % (0-5); Hematocrit 45.1 % (40-54); Hemoglobin 14.7 g/dL (13.0-16.5); Lymphocyte # 1.41 X10^3/ul (0.83-4.51); Lymphocyte % 20.3 % (19-41); Mean Corp Hgb Conc 32.6 g/dL (32-36); Mean Corpuscular Hgb 28.9 pg (27.0-32.0); Mean Corpuscular Volume 88.8 fL (80-94); Mean Platelet Vol. 9.1 fl (6.2-12.0); Monocyte# 0.44 X10^3/uL; Monocyte% 6.3 % (0-10); NRBC Flagged by Analyzer 0 % (0-5); Neutrophil # 4.91 X10^3/uL (2.7-7.7); Platelet Count 200 K/mm3 (150-450); RBC Distribution Width CV 13.6 % (11.6-14.6); RBC Distribution Width SD 44.2 fl (35.1-43.9); Red Blood Count 5.08 M/mm3 (4.6-6.2); White Blood Count 6.9 K/mm3 (4.4-11.0)
[2023-10-31 16:29] LABS: Hemoglobin A1c 5.6 % (3.8-5.6)
[2023-10-31 16:38] LABS: ALB/GLOB Ratio 1.2 RATIO (0.9-2.4); AST(SGOT) 15 U/L (15-37); Alanine Aminotransfer ALT/SGPT 28 U/L (16-61); Alkaline Phosphatase 84 U/L (45-117); Anion Gap 4 (5-15); BUN 22 mg/dL (7-18); BUN/Creat Ratio 18.3 RATIO (10-20); Calcium,Total 8.9 mg/dL (8.5-10.1); Chloride 109 mmol/L (98-107); Cholesterol 100 mg/dL (200); EST Glomerular Filtration Rate 63 mL/min (>60); Est Glom Filt Rate - Afr Amer 77 mL/min (>60); Globulin 3.4 g/dL (2.2-4.2); Glucose 89 mg/dL (74-106); High Density Lipoprotein 43 mg/dL; Potassium 3.6 mmol/L (3.5-5.1); Protein, Total 7.4 g/dL (6.4-8.2); Sodium Level 139 mmol/L (136-145); Triglycerides 121 mg/dL; Uric Acid 4.2 mg/dL (3.5-7.2); Very Low Density Lipoprotein 24 mg/dL (5-40)
== END | disposition home or self-care (01) ==
LOC: MTLAB 12:49
PROVIDERS: PCP Family Medicine; Referring Provider Family Medicine; Visit Provider Family Medicine
DX: R73.02 Impaired glucose tolerance (oral) (principal); I25.10 Atherosclerotic heart disease of native coronary artery without angina pectoris
CPT/HCPCS: 36415; 80053; 80061; 83036; 84550; 85025

== ENCOUNTER → 2024-01-30 | Outpatient (CLI) | payer MEDICARE, OTHER, SELFPAY ==
[2024-01-30 11:40] LABS: Absolute Lymphocyte Count 1.37 X10^3/uL (0.83-4.51); Absolute Neutrophil Count 5.8 X10^3/uL (2.0-7.7); Basophil# 0.06 X10^3/uL; Basophil% 0.8 % (0-1); Eosinophils% 1.3 % (0-5); Hematocrit 44.7 % (40-54); Hemoglobin 14.7 g/dL (13.0-16.5); Lymphocyte # 1.37 X10^3/ul (0.83-4.51); Lymphocyte % 17.5 % (19-41); Mean Corp Hgb Conc 32.9 g/dL (32-36); Mean Corpuscular Hgb 29.2 pg (27.0-32.0); Mean Corpuscular Volume 88.7 fL (80-94); Monocyte# 0.53 X10^3/uL; Monocyte% 6.8 % (0-10); NRBC Flagged by Analyzer 0 % (0-5); Neutrophil # 5.76 X10^3/uL (2.7-7.7); Neutrophil % 73.2 % (47-70); Platelet Count 198 K/mm3 (150-450); RBC Distribution Width CV 14.6 % (11.6-14.6); RBC Distribution Width SD 46.7 fl (35.1-43.9); Red Blood Count 5.04 M/mm3 (4.6-6.2); White Blood Count 7.9 K/mm3 (4.4-11.0)
[2024-01-30 12:21] LABS: ALB/GLOB Ratio 1.3 RATIO (0.9-2.4); AST(SGOT) 16 U/L (15-37); Alanine Aminotransfer ALT/SGPT 26 U/L (16-61); Albumin, Serum 4.3 g/dL (3.2-5.0); Alkaline Phosphatase 80 U/L (45-117); Anion Gap 7 (5-15); BUN 29 mg/dL (7-18); BUN/Creat Ratio 24.2 RATIO (10-20); Calcium,Total 9.2 mg/dL (8.5-10.1); Chloride 106 mmol/L (98-107); Cholesterol 109 mg/dL (200); EST Glomerular Filtration Rate 63 mL/min (>60); Est Glom Filt Rate - Afr Amer 77 mL/min (>60); Globulin 3.2 g/dL (2.2-4.2); Glucose 118 mg/dL (74-106); High Density Lipoprotein 44 mg/dL; Potassium 4.2 mmol/L (3.5-5.1); Protein, Total 7.5 g/dL (6.4-8.2); Sodium Level 139 mmol/L (136-145); Triglycerides 104 mg/dL; Very Low Density Lipoprotein 21 mg/dL (5-40)
[2024-01-30 15:17] LABS: Hemoglobin A1c 5.6 % (3.8-5.6)
== END | disposition home or self-care (01) ==
LOC: MTLAB 10:35
PROVIDERS: PCP Family Medicine; Referring Provider Family Medicine; Visit Provider Family Medicine
DX: R73.02 Impaired glucose tolerance (oral) (principal); E78.5 Hyperlipidemia, unspecified; I25.10 Atherosclerotic heart disease of native coronary artery without angina pectoris
CPT/HCPCS: 36415; 80053; 80061; 83036; 85025

== ENCOUNTER 2024-05-23 07:39 | Emergency (ER) | payer MEDICARE, OTHER, SELFPAY ==
[2024-05-23 07:39] VITALS: BP 130/82; PULSE 67; RESP 19; TEMP 36.2; O2SAT 98; BMI 32.1
--- NOTE | 2024-05-23 08:21 | EX.ED.DYSGE1 ---
HPI History of Present Illness Chief Complaint: Cold Sx Informant: patient Narrative Narrative: Patient is a 73-year-old male present with flulike symptoms and positive home COVID test. He started having symptoms yesterday. He is complaining of bodyaches, nasal congestion and runny nose. He has had chills but no fever. Denies any nausea vomiting or diarrhea. Nuys any urinary symptoms. States his abdomen feels like it is rolling. Has had a intermittent harsh cough. is presenting with the same symptoms. He denies any difficulty breathing or chest pain. No other complaints or concerns reported at this time. [facility] Medical History Hypercholesteremia H/O: gout HTN (hypertension) Home Medications ?Medication ?Instructions ?Recorded ?Last Taken ?Type allopurinol 300 mg tablet 300 mg PO DAILY 11/19/19 Unknown History atorvastatin 80 mg tablet 80 mg PO QHS 11/19/19 Unknown History clopidogrel 75 mg tablet 75 mg PO DAILY 11/19/19 Unknown History colchicine 0.6 mg capsule 0.6 mg PO DAILY 11/19/19 Unknown History diclofenac sodium 75 mg 75 mg PO BIDCM 11/19/19 Unknown History tablet,delayed release lisinopril 2.5 mg tablet 2.5 mg PO DAILY 11/19/19 Unknown History nitroglycerin 0.4 mg sublingual 0.4 mg sublingual Q5M PRN Chest 11/19/19 Unknown History tablet Pain trazodone 100 mg tablet 150 mg PO QHS 11/19/19 Unknown History nirmatrelvir 300 mg (150 mg See Rx Instructions PO .COMPLEX 05/23/24 Unknown Rx x2)-ritonavir 100 mg tablet,dose #30 tabs pack (Paxlovid) ondansetron 4 mg disintegrating 4 mg PO Q8H PRN PRN Nausea #10 tabs 05/23/24 Unknown Rx tablet Allergy/AdvReac Type Severity Reaction Status Date / Time No Known Allergies Allergy Verified 07/11/23 14:58 Surgical History H/O heart artery stent Social History Smoking Status: Never smoker ROS ROS ED Constitutional Constitutional ED: Reports chills; Denies fever(s) ENT ENT ED: Reports rhinorrhea and other Details: Nasal congestion, ear congestion ; Denies ear pain or sore throat Cardiovascular Cardiovascular: Denies chest pain Respiratory/Chest Respiratory/Chest: Reports cough; Denies dyspnea Gastrointestinal Gastrointestinal: Denies diarrhea, nausea or vomiting Genitourinary Genitourinary ED: Denies dysuria Musculoskeletal Musculoskeletal: Reports myalgias; Denies arthralgias Integumentary Denies rash Neurologic Neurologic: Denies headache(s) EXAM Physical Exam Const Vital Signs: 05/23/24 07:39 Temperature 97.2 F L Temperature Source Temporal Pulse Rate 67 Respiratory Rate 19 H Blood Pressure 130/82 H Blood Pressure Mean 98 Pulse Ox 98 Oxygen Delivery Method Room Air Positive well nourished and well developed General Appearance ED: well developed and NAD HEENT Reports moist mucous membranes HEENT Narrative: Rhinorrhea present. Normal tympanic membranes bilaterally. Normal oropharynx. Eyes PERRL and EOMs intact bilaterally Neck no lymphadenopathy and supple Chest Wall inspection of chest normal Resp normal respiratory effort and clear to auscultation bilaterally Cardio regular rate and regular rhythm GI normal to inspection, nondistended, normoactive bowel sounds and non-tender Extremity normal to inspection Neuro oriented x3 Sensorium / Orientation: alert Motor Exam: Negative for general weakness Psych mental status grossly normal Skin no rashes or lesions noted MDM MDM MDM Narrative Medical decision making narrative: Patient is evaluated for flulike symptoms with positive home COVID test. Vital signs are normal. He has clear breath sounds. As he is only had 2 days of symptoms and overall is quite well-appearing and able to tolerate p.o. I do not think he requires further workup at this time. Will be started on Paxlovid. Will review the patient's medication list to ensure that there is no interactions. Will also give a prescription for Zofran in case he has any associated nausea. Discussed pushing fluids and taking Tylenol as well as Mucinex as needed for symptoms. Recommended Coricidin HBP as needed for decongestants. Encouraged return to the emergency room should he have a progression worsening of his symptoms or further concerns. Discharge Plan Triage Chief Complaint: Cold Sx ED Provider: Fe Del Valle Dx/Rx/DC Orders Clinical Impression: COVID-19 Instructions: Coronavirus Disease 2019 (COVID-19): Caring for Yourself or Others Prescriptions: New Paxlovid 300 mg (150 mg x 2)-100 mg tablets,dose pack See Rx Instructions .ROUTE .COMPLEX Qty: 30 0RF Rx Instructions: take TWO 150 mg tablets of nirmatrelvir with ONE 100 mg tablet of ritonavir twice daily for 5 days ondansetron 4 mg tablet,disintegrating 4 mg PO Q8H PRN PRN (Reason: Nausea) Qty: 10 0RF No Action atorvastatin 80 MG tablet 80 mg PO QHS clopidogrel 75 MG tablet 75 mg PO DAILY trazodone 100 MG tablet 150 mg PO QHS nitroglycerin 0.4 MG tablet, sublingual 0.4 mg sublingual Q5M PRN (Reason: Chest Pain) diclofenac sodium 75 MG tablet 75 mg PO BIDCM allopurinol 300 MG tablet 300 mg PO DAILY lisinopril 2.5 MG tablet 2.5 mg PO DAILY colchicine 0.6 MG capsule 0.6 mg PO DAILY Primary Care Provider: Juliocesar Dominguez Referrals: Juliocesar Dominguez MD [Primary Care Provider] - Activity Restrictions/Additional Instructions: While taking the antiviral medicine please hold your colchicine, sleep medication (lemborexant) and atorvastatin until you stop the medication. Take Tylenol as well as [id number] Coricidin HBP and Mucinex for symptom control. Make sure you are drinking plenty of fluids. Some pharmacies do not have Paxlovid in stock to be given a paper prescription in case you need to go to a different pharmacy Print Language: Syriac Disposition Disposition: Home, Self Care
== END 2024-05-23 08:54 | disposition home or self-care (01) ==
PROVIDERS: Emergency Provider Emergency Medicine; PCP Family Medicine; Visit Provider Emergency Medicine
DX: U07.1 COVID-19 (principal); E78.00 Pure hypercholesterolemia, unspecified; I10 Essential (primary) hypertension; Z79.899 Other long term (current) drug therapy; M10.9 Gout, unspecified
CPT/HCPCS: 99282

== ENCOUNTER 2024-06-29 16:46 | Emergency (ER) | payer MEDICARE, OTHER, SELFPAY ==
[2024-06-29] VITALS (8 sets, daily range): BP systolic 131–170; BP diastolic 68–98; PULSE 50–73; RESP 16–20; TEMP 36.1–36.4; O2SAT 95–98; BMI 34.4
--- NOTE | 2024-06-29 17:09 | CT_ITS ---
STUDY: CT ABDOMEN AND PELVIS WITH CONTRAST REASON FOR EXAM: Male, 74 years old. R Flank and RUQ pain RADIATION DOSAGE (If Supplied By Facility): CTDIvol = ( 18.21 ) mGy, DLP = ( 1032.48 ) mGycm TECHNIQUE: Transaxial images were obtained from the dome of the diaphragm to the symphysis pubis without oral contrast. IV 100mL Isovue-300 was administered. Sagittal and coronal images were reconstructed. Individualized dose optimization techniques were used for this CT. COMPARISON: None. FINDINGS: The visualized lung bases demonstrate up to 6 mm peripheral nodules bilaterally. The visualized portions of the heart are within normal limits. Normal liver. Normal gallbladder and extrahepatic biliary system. Normal spleen. Normal pancreas. Left adrenal 1.2 cm nodule. 4.2 cm cystic lesion and a punctate lower pole stone in the right kidney. Right perinephric stranding. Right hydronephrosis with an 8 mm stone noted within the proximal right ureter. Up to 1.3 cm cysts and up to 3 mm calculi in the left kidney. Normal visualized stomach. Normal small intestine. Normal colon. The appendix is visualized and appears normal. Normal abdominal aorta. Normal inferior vena cava. Normal retroperitoneum. Normal urinary bladder. Small fatty umbilical hernia. Normal osseous structures. CT/Abdomen/Pelvis W IV Cont ONLY IMPRESSION: Bilateral renal cysts and renal calculi. Mild right hydronephrosis with an obstructive proximal right ureteral stone. Left adrenal nodule. Peripheral nodules in the lung bases likely granulomatous in nature. Small fatty umbilical hernia. Electronically Signed: Lopez Watkins DO at 19:10 EDT ,
--- NOTE | 2024-06-29 17:09 | EKG12_ITS ---
Test Reason : FLANK PAIN Blood Pressure : / mmHG Vent. Rate : 056 BPM Atrial Rate : 056 BPM P-R Int : 190 ms QRS Dur : 086 ms QT Int : 426 ms P-R-T Axes : 016 046 014 degrees QTc Int : 411 ms Sinus bradycardia Otherwise normal ECG Confirmed by Marco Mederos ([id number]), script editor HENNA GARCIA ([id number]) on 06/30/2024 10:13:22 AM Referred By: Confirmed By:Marco Mederos
[2024-06-29] MEDS: 0.9% Normal Saline (1000mL) 1,000 ML 999 ML IV (17:18)
[2024-06-29] MEDS: Morphine 4 MG/ML Syringe IV (17:18)
[2024-06-29] MEDS: Ondansetron 4 MG/2 ML Vial IV (17:18)
[2024-06-29 17:34] LABS: Absolute Lymphocyte Count 1.51 X10^3/uL (0.83-4.51); Absolute Neutrophil Count 7.4 X10^3/uL (2.0-7.7); Basophil# 0.07 X10^3/uL; Basophil% 0.7 % (0-1); Hematocrit 44.2 % (40-54); Hemoglobin 14.3 g/dL (13.0-16.5); Lymphocyte # 1.51 X10^3/ul (0.83-4.51); Lymphocyte % 15.5 % (19-41); Mean Corp Hgb Conc 32.4 g/dL (32-36); Mean Corpuscular Hgb 27.9 pg (27.0-32.0); Mean Corpuscular Volume 86.3 fL (80-94); Mean Platelet Vol. 9.2 fl (6.2-12.0); Monocyte# 0.61 X10^3/uL; Monocyte% 6.3 % (0-10); NRBC Flagged by Analyzer 0 % (0-5); Neutrophil # 7.44 X10^3/uL (2.7-7.7); Neutrophil % 76.2 % (47-70); Platelet Count 212 K/mm3 (150-450); RBC Distribution Width CV 14.3 % (11.6-14.6); RBC Distribution Width SD 45.1 fl (35.1-43.9); Red Blood Count 5.12 M/mm3 (4.6-6.2); White Blood Count 9.8 K/mm3 (4.4-11.0)
--- NOTE | 2024-06-29 17:49 | EDS_ITS ---
HPI History of Present Illness Chief Complaint: Flank Pain Narrative Narrative: Patient is a 74-year-old male with past medical history of hypertension, hypercholesteremia, CAD status post stents who presents to the emergency department with a chief complaint of right-sided flank and abdominal pain. Patient states that yesterday he noted that he had some pain in his back that got better as the day went on. He states that he woke up this morning feeling fine and noted that as the day went on he had pain intermittently however recently the pain has been worse prompting him here for further evaluation management. He rates his pain a 7 out of 10. He states that he has not taken a nything for pain yet. He states that he has had some nausea and vomiting. [facility] Medical History Hypercholesteremia H/O: gout HTN (hypertension) Home Medications ?Medication ?Instructions ?Recorded ?Last Taken ?Type allopurinol 300 mg tablet 300 mg PO DAILY 11/19/19 Unknown History atorvastatin 80 mg tablet 80 mg PO QHS 11/19/19 Unknown History clopidogrel 75 mg tablet 75 mg PO DAILY 11/19/19 Unknown History colchicine 0.6 mg capsule 0.6 mg PO DAILY 11/19/19 Unknown History diclofenac sodium 75 mg 75 mg PO BIDCM 11/19/19 Unknown History tablet,delayed release lisinopril 2.5 mg tablet 2.5 mg PO DAILY 11/19/19 Unknown History nitroglycerin 0.4 mg sublingual 0.4 mg sublingual Q5M PRN Chest 11/19/19 Unknown History tablet Pain trazodone 100 mg tablet 150 mg PO QHS 11/19/19 Unknown History nirmatrelvir 300 mg (150 mg See Rx Instructions PO .COMPLEX 05/23/24 Unknown Rx x2)-ritonavir 100 mg tablet,dose #30 tabs pack (Paxlovid) ondansetron 4 mg disintegrating 4 mg PO Q8H PRN PRN Nausea #10 tabs 05/23/24 Unknown Rx tablet Allergy/AdvReac Type Severity Reaction Status Date / Time No Known Allergies Allergy Verified 06/29/24 16:50 Surgical History H/O heart artery stent Social History Smoking Status: Never smoker ROS ROS ED ROS Narrative Constitutional: Denies any fevers, chills, headaches, lightness, dizziness Eyes: Denies change in vision double vision blurry vision Cardiovascular: Denies chest pain or palpitations Respiratory: Denies coughing wheezing shortness of breath Abdomen: Complains of right-sided flank/abdominal pain as well as nausea vomiting denies diarrhea : Denies any urinary symptoms Neurological: Denies numbness, weakness, tingling Musculoskeletal: Complains of right flank pain Skin: Denies any rashes or lesions EXAM Physical Exam Narrative Exam Narrative: General: Patient lying in bed did appear to be uncomfortable secondary to his abdominal/flank pain Head: Atraumatic, normocephalic Eyes: PERRL bilateral, EOMI bilateral, no conjunctival injection noted Neck: Soft, supple, trachea midline Cardiovascular: Regular rate and rhythm no murmurs gallops rubs noted Respiratory: Clear to auscultation bilaterally no rales rhonchi or wheezes noted Abdomen: Soft, nondistended, tenderness palpation in the right upper quadrant no rebound or guarding noted on exam Extremities: +5/5 strength noted in the bilateral upper and lower extremities, radial pulses +2/4 in the bilateral per extremities Neurological: Patient following commands knew he was at [facility] there is 2023 Skin: Warm, dry, intact Const Vital Signs: 06/29/24 16:46 06/29/24 17:46 06/29/24 19:00 Temperature 96.9 F L Temperature Source Temporal Pulse Rate 55 L 50 L 56 L Respiratory Rate 20 H 18 18 Blood Pressure 170/98 H 164/85 H 139/74 H Blood Pressure Mean 122 111 95 Pulse Ox 95 98 95 Oxygen Delivery Method Room Air Room Air Room Air Oxygen Flow Rate (L/min) 06/29/24 20:00 06/29/24 21:00 Temperature Temperature Source Pulse Rate 59 L 58 L Respiratory Rate 16 16 Blood Pressure 137/71 H 131/68 H Blood Pressure Mean 93 89 Pulse Ox 96 96 Oxygen Delivery Method Nasal Cannula Nasal Cannula Oxygen Flow Rate (L/min) 2 2 MDM MDM MDM Narrative Medical decision making narrative: Patient is a 74-year-old male who presents to the emerged part of the chief complaint of right-sided abdominal pain/flank pain. Patient will have a workup performed here on the differential diagnose includes but not limited to cholecystitis, urolithiasis, UTI, pyelonephritis, AAA. Once workup is obtained reviewed he will be reevaluated. Patient given IV fluids, morphine Zofran. Patient CBC reviewed and showed no evidence leukocytosis white blood count normal at 9.8, hemoglobin stable at 14.3, plate count normal at 212. Patient sodium normal 138, potassium normal at 3.7, creatinine normal at 1.20. Patient's AST and ALT were normal at 21 and 17 respectively, troponin normal at 16 EKG reviewed showed sinus bradycardia with rate of 56 bpm. Patient's lipase normal at 15, urinalysis did not reveal any evidence of infection was noted to have occult blood. Patient CT abdomen pelvis with IV contrast reviewed and showed a right sided 8 mm kidney stone at the proximal right ureter with hydronephrosis with obstructive component. Bilateral renal cyst and renal calculi noted left adrenal nodule. Peripheral nodules in the lung bases likely granulomatous in nature. Small fatty umbilical hernia. Patient was still in significant pain was requesting more pain medication which was ordered. Patient did become hypoxic after morphine administration he is on 2 L nasal cannula. Did call and discussed case with [facility]ist Dr. Wong who accept the patient for admission. Patient was notified he is agreeable this plan all question concerns were answered at bedside. Lab Data Labs: Laboratory Results - last 24 hr 06/29/24 06/29/24 17:23 19:21 WBC 9.8 RBC 5.12 Hgb 14.3 Hct 44.2 MCV 86.3 MCH 27.9 MCHC 32.4 RDW Std Deviation 45.1 H RDW Coeff of [place] 14.3 Plt Count 212 MPV 9.2 Immature Gran % (Auto) 0.300 Neut % (Auto) 76.2 H Lymph % (Auto) 15.5 L Wall[place] % (Auto) 6.3 Eos % (Auto) 1.0 Baso % (Auto) 0.7 Absolute Neuts (auto) 7.4 Absolute Lymphs (auto) 1.51 Nucleated RBC % 0 Sodium 138 Potassium 3.7 Chloride 107 Carbon Dioxide 23.0 Anion Gap 8 BUN 16 Creatinine 1.20 Est GFR (MDRD) Af Amer 77 Est GFR (MDRD) Non-Af 63 BUN/Creatinine Ratio 13.3 Glucose 100 Calcium 9.3 Total Bilirubin 1.00 AST 21 ALT 17 Alkaline Phosphatase 84 Troponin I High Sens 16 Total Protein 7.3 Albumin 4.0 Globulin 3.3 Albumin/Globulin Ratio 1.2 Lipase 15 Urine Color Straw Urine Clarity Clear Urine pH 6.5 Ur Specific [place] 1.010 Urine Protein Negative Urine Glucose (UA) Normal Urine Ketones 5 H Urine Occult Blood 50 H Urine Nitrite Negative Urine Bilirubin Negative Urine Urobilinogen Normal Ur Leukocyte Esterase Negative Urine RBC 25-50 SEEN Urine WBC 0 SEEN Ur Squamous Epith Cells 0 SEEN Urine Bacteria 0 SEEN Urine Mucus 0 SEEN Radiography Diagnostic Testing: Clinical Impression(s) from Imaging Studies Abdomen/Pelvis CT 06/29/24 17:09 IMPRESSION: Bilateral renal cysts and renal calculi. Mild right hydronephrosis with an obstructive proximal right ureteral stone. Left adrenal nodule. Peripheral nodules in the lung bases likely granulomatous in nature. Small fatty umbilical hernia. Electronically Signed: Lopez Watkins DO at 19:10 EDT Reading Location ID and State: [facility] / [place] Tel [phone], Service support , Discharge Plan Triage Chief Complaint: Flank Pain ED Provider: Víctor Ford Dx/Rx/DC Orders Clinical Impression: Hydronephrosis with renal and ureteral calculous obstruction, Intractable back pain, Nausea & vomiting Prescriptions: No Action atorvastatin 80 MG tablet 80 mg PO QHS clopidogrel 75 MG tablet 75 mg PO DAILY trazodone 100 MG tablet 150 mg PO QHS nitroglycerin 0.4 MG tablet, sublingual 0.4 mg sublingual Q5M PRN (Reason: Chest Pain) diclofenac sodium 75 MG tablet 75 mg PO BIDCM allopurinol 300 MG tablet 300 mg PO DAILY lisinopril 2.5 MG tablet 2.5 mg PO DAILY colchicine 0.6 MG capsule 0.6 mg PO DAILY Paxlovid 300 mg (150 mg x 2)-100 mg tablets,dose pack See Rx Instructions .ROUTE .COMPLEX Qty: 30 0RF Rx Instructions: take TWO 150 mg tablets of nirmatrelvir with ONE 100 mg tablet of ritonavir twice daily for 5 days ondansetron 4 mg tablet,disintegrating 4 mg PO Q8H PRN PRN (Reason: Nausea) Qty: 10 0RF Primary Care Provider: Juliocesar Dominguez Referrals: Juliocesar Dominguez MD [Primary Care Provider] - Print Language: [place] Disposition Disposition: DC/Tx to Another Type of HCF
[2024-06-29 18:01] LABS: ALB/GLOB Ratio 1.2 RATIO (0.9-2.4); AST(SGOT) 21 U/L (15-37); Alanine Aminotransfer ALT/SGPT 17 U/L (16-61); Alkaline Phosphatase 84 U/L (45-117); Anion Gap 8 (5-15); BUN 16 mg/dL (7-18); BUN/Creat Ratio 13.3 RATIO (10-20); Calcium,Total 9.3 mg/dL (8.5-10.1); Chloride 107 mmol/L (98-107); EST Glomerular Filtration Rate 63 mL/min (>60); Est Glom Filt Rate - Afr Amer 77 mL/min (>60); Globulin 3.3 g/dL (2.2-4.2); Glucose 100 mg/dL (74-106); Lipase 15 U/L (13-75); Potassium 3.7 mmol/L (3.5-5.1); Protein, Total 7.3 g/dL (6.4-8.2); Sodium Level 138 mmol/L (136-145); Troponin-I HS 16 pg/mL (3.0-78.0)
[2024-06-29] MEDS: Ketorolac 15 MG/ML Vial IV (19:06)
[2024-06-29 19:26] LABS: Bacteria 0 SEEN /hpf (None Seen); Mucous, Urine 0 SEEN /hpf (<or=2+); Squamous Epithelial Cells - UA 0 SEEN /hpf (0-5); White Blood Cells 0 SEEN /hpf (0-5)
[2024-06-29 19:31] LABS: Color, Urine Straw (Yellow); Glucose, Dipstick Normal (Normal); Ketone-Dipstick 5 mg/dl (Negative); Leukocyte Esterase-Dipstick Negative /ul (Negative); Nitrite-Dipstick Negative (Negative); Occult Blood-Urine 50 /ul (Negative); Protein-Dipstick Negative (Negative); Urine Bilirubin Dipstick Negative (Negative); Urine Clarity Clear (Clear); Urine Urobilinogen Normal (Normal); Urine pH 6.5 (5.0 - 8.0)
[2024-06-29] MEDS: Metoclopramide 10 MG/2 ML Vial 5 MG IV (19:32)
[2024-06-29 19:47] LABS: Red Blood Cells-Urine 25-50 SEEN /hpf (0-5)
--- NOTE | 2024-06-29 21:03 | ED.RN ---
ACCEPTED AT [facility], BED NOT AVAILABLE UNTIL TOMORROW.
[2024-06-30] VITALS: BP 146/72; PULSE 57; RESP 16; O2SAT 94
[2024-06-30 01:00] VITALS: BP 116/80; PULSE 53; RESP 16; O2SAT 94
[2024-06-30 01:30] VITALS: O2SAT 96
== END 2024-06-30 01:40 | disposition other institution (70) ==
PROVIDERS: Emergency Provider Emergency Medicine; PCP Family Medicine; Visit Provider Emergency Medicine
DX: N13.2 Hydronephrosis with renal and ureteral calculous obstruction (principal); R11.2 Nausea with vomiting, unspecified; M54.9 Dorsalgia, unspecified; N28.1 Cyst of kidney, acquired; I10 Essential (primary) hypertension; I25.10 Atherosclerotic heart disease of native coronary artery without angina pectoris; K42.9 Umbilical hernia without obstruction or gangrene; E27.9 Disorder of adrenal gland, unspecified; E78.00 Pure hypercholesterolemia, unspecified; M10.9 Gout, unspecified; Z95.5 Presence of coronary angioplasty implant and graft; Z79.02 Long term (current) use of antithrombotics/antiplatelets; Z79.899 Other long term (current) drug therapy
CPT/HCPCS: 74177; 80053; 81001; 83690; 84484; 85025; 93005; 96361; 96374; 96375; 96376; 99285; J7030; Q9967; A4216; J2405

== ENCOUNTER → 2024-07-29 | Outpatient (CLI) | payer MEDICARE, OTHER, SELFPAY ==
[2024-07-29 18:10] LABS: Absolute Lymphocyte Count 1.47 X10^3/uL (0.83-4.51); Absolute Neutrophil Count 4.8 X10^3/uL (2.0-7.7); Basophil# 0.04 X10^3/uL; Basophil% 0.6 % (0-1); Eosinophil# 0.15 X10^3/uL; Eosinophils% 2.2 % (0-5); Hematocrit 44.4 % (40-54); Hemoglobin 14.3 g/dL (13.0-16.5); Lymphocyte # 1.47 X10^3/ul (0.83-4.51); Lymphocyte % 21.1 % (19-41); Mean Corp Hgb Conc 32.2 g/dL (32-36); Mean Corpuscular Hgb 28.6 pg (27.0-32.0); Mean Corpuscular Volume 88.8 fL (80-94); Mean Platelet Vol. 9.5 fl (6.2-12.0); Monocyte# 0.46 X10^3/uL; Monocyte% 6.6 % (0-10); NRBC Flagged by Analyzer 0 % (0-5); Neutrophil # 4.83 X10^3/uL (2.7-7.7); Neutrophil % 69.2 % (47-70); Platelet Count 224 K/mm3 (150-450); RBC Distribution Width CV 13.8 % (11.6-14.6); RBC Distribution Width SD 44.5 fl (35.1-43.9)
[2024-07-29 18:15] LABS: Color, Urine Yellow (Yellow); Glucose, Dipstick Normal (Normal); Ketone-Dipstick Negative (Negative); Leukocyte Esterase-Dipstick Negative /ul (Negative); Nitrite-Dipstick Negative (Negative); Occult Blood-Urine 10 /ul (Negative); Protein-Dipstick 15 mg/dl (Negative); Specific Gravity, Urine 1.025 (1.002-1.030); Urine Bilirubin Dipstick Negative (Negative); Urine Clarity Clear (Clear); Urine Urobilinogen Normal (Normal)
[2024-07-29 18:34] LABS: Hemoglobin A1c 5.5 % (3.8-5.6)
[2024-07-29 18:36] LABS: Mucous, Urine 2+ /hpf (<or=2+)
[2024-07-29 18:39] LABS: Bacteria RARE /hpf (None Seen); Red Blood Cells-Urine 0-5 SEEN /hpf (0-5); Squamous Epithelial Cells - UA 0-5 SEEN /hpf (0-5); White Blood Cells 0-5 SEEN /hpf (0-5)
[2024-07-29 18:45] LABS: ALB/GLOB Ratio 1.4 RATIO (0.9-2.4); AST(SGOT) 15 U/L (15-37); Alanine Aminotransfer ALT/SGPT 22 U/L (16-61); Albumin, Serum 4.3 g/dL (3.2-5.0); Alkaline Phosphatase 87 U/L (45-117); Anion Gap 7 (5-15); BUN 25 mg/dL (7-18); BUN/Creat Ratio 21.4 RATIO (10-20); Calcium,Total 9.2 mg/dL (8.5-10.1); Chloride 108 mmol/L (98-107); Cholesterol 104 mg/dL (200); Creatinine, Serum 1.17 mg/dL (0.70-1.30); EST Glomerular Filtration Rate 65 mL/min (>60); Est Glom Filt Rate - Afr Amer 79 mL/min (>60); Glucose 87 mg/dL (74-106); High Density Lipoprotein 41 mg/dL; Magnesium 2.5 mg/dL (1.6-2.6); Potassium 3.7 mmol/L (3.5-5.1); Protein, Total 7.3 g/dL (6.4-8.2); Sodium Level 138 mmol/L (136-145); Triglycerides 137 mg/dL; Very Low Density Lipoprotein 27 mg/dL (5-40)
== END | disposition home or self-care (01) ==
LOC: MFPLAB 13:41
PROVIDERS: PCP Family Medicine; Visit Provider Family Medicine
DX: R73.02 Impaired glucose tolerance (oral) (principal); E78.5 Hyperlipidemia, unspecified; I10 Essential (primary) hypertension
CPT/HCPCS: 36415; 80053; 80061; 81001; 83036; 83735; 84443; 85025

== ENCOUNTER → 2024-11-27 | Outpatient (CLI) | payer MEDICARE, OTHER, SELFPAY ==
[2024-11-27 13:44] LABS: Bacteria 0 SEEN /hpf (None Seen); Squamous Epithelial Cells - UA 0 SEEN /hpf (0-5); White Blood Cells 0 SEEN /hpf (0-5)
[2024-11-27 15:20] LABS: Color, Urine Yellow (Yellow); Glucose, Dipstick Normal (Normal); Ketone-Dipstick Negative (Negative); Leukocyte Esterase-Dipstick Negative /ul (Negative); Nitrite-Dipstick Negative (Negative); Occult Blood-Urine 25 /ul (Negative); Protein-Dipstick 15 mg/dl (Negative); Urine Bilirubin Dipstick Negative (Negative); Urine Clarity Clear (Clear); Urine Urobilinogen 1 mg/dl (Normal)
[2024-11-27 15:28] LABS: Absolute Lymphocyte Count 1.12 X10^3/uL (0.83-4.51); Absolute Neutrophil Count 3.5 X10^3/uL (2.0-7.7); Basophil# 0.07 X10^3/uL; Basophil% 1.3 % (0-1); Eosinophil# 0.18 X10^3/uL; Eosinophils% 3.4 % (0-5); Hematocrit 41.8 % (40-54); Hemoglobin 13.5 g/dL (13.0-16.5); Lymphocyte # 1.12 X10^3/ul (0.83-4.51); Lymphocyte % 21.3 % (19-41); Mean Corp Hgb Conc 32.3 g/dL (32-36); Mean Corpuscular Hgb 28.8 pg (27.0-32.0); Mean Corpuscular Volume 89.1 fL (80-94); Mean Platelet Vol. 9.4 fl (6.2-12.0); Monocyte# 0.34 X10^3/uL; Monocyte% 6.5 % (0-10); NRBC Flagged by Analyzer 0 % (0-5); Neutrophil # 3.54 X10^3/uL (2.7-7.7); Neutrophil % 67.3 % (47-70); Platelet Count 206 K/mm3 (150-450); RBC Distribution Width CV 14.3 % (11.6-14.6); RBC Distribution Width SD 45.9 fl (35.1-43.9); Red Blood Count 4.69 M/mm3 (4.6-6.2); White Blood Count 5.3 K/mm3 (4.4-11.0)
[2024-11-27 15:38] LABS: Calcium Oxalate Crystals Ur 1+ /hpf (<or=2+); Mucous, Urine 1+ /hpf (<or=2+); Red Blood Cells-Urine 0-5 SEEN /hpf (0-5)
[2024-11-27 15:49] LABS: ALB/GLOB Ratio 1.2 RATIO (0.9-2.4); AST(SGOT) 9 U/L (15-37); Alanine Aminotransfer ALT/SGPT 21 U/L (16-61); Alkaline Phosphatase 103 U/L (45-117); Anion Gap 7 (5-15); BUN 19 mg/dL (7-18); BUN/Creat Ratio 17.3 RATIO (10-20); Calcium,Total 9.3 mg/dL (8.5-10.1); Chloride 106 mmol/L (98-107); Cholesterol 99 mg/dL (200); EST Glomerular Filtration Rate 70 mL/min (>60); Est Glom Filt Rate - Afr Amer 85 mL/min (>60); Globulin 3.2 g/dL (2.2-4.2); Glucose 135 mg/dL (74-106); High Density Lipoprotein 36 mg/dL; PSA,Total - Annual Screen 2.66 ng/mL (0.00-4.00); Potassium 3.5 mmol/L (3.5-5.1); Protein, Total 7.2 g/dL (6.4-8.2); Sodium Level 139 mmol/L (136-145); Triglycerides 222 mg/dL; Very Low Density Lipoprotein 44 mg/dL (5-40)
[2024-11-27 16:11] LABS: Hemoglobin A1c 5.3 % (3.8-5.6)
== END | disposition home or self-care (01) ==
LOC: MFPLAB 13:36
PROVIDERS: PCP Family Medicine; Referring Provider Family Medicine; Visit Provider Family Medicine
DX: E78.5 Hyperlipidemia, unspecified (principal); Z12.5 Encounter for screening for malignant neoplasm of prostate; R73.02 Impaired glucose tolerance (oral); I10 Essential (primary) hypertension
CPT/HCPCS: 36415; 80053; 80061; 81001; 83036; 84153; 85025; G0103

== ENCOUNTER → 2025-02-17 | Outpatient (CLI) | payer MEDICARE, OTHER, SELFPAY ==
--- NOTE | 2025-02-17 09:26 | BI_ITS ---
EXAM: DIAG MAMM W/CAD, BILAT N/A CLINICAL HISTORY: 74-year-old male presents with bilateral nipple tenderness. Family history of breast cancer in paternal grandmother and sister. TECHNIQUE: Bilateral Diagnostic digital breast tomosynthesis with 2D and 3D images. Computer aided detection. COMPARISON: Baseline examination, no priors. FINDINGS: TISSUE DENSITY: The breast tissue is almost entirely fatty. Bilateral Breast Mammographic Findings: There is bilateral retroareolar flame shaped fibroglandular density, moderate on the right and mild on the left, which reflects bilateral gynecomastia. Otherwise, there are no suspicious masses, grouped calcifications or architectural distortions in either breast. BI/DIAG MAMM W/CAD, BILAT IMPRESSION: Bilateral benign gynecomastia, moderate right and mild left. Clinical manageme nt is recommended to determine the etiology. There is no evidence of malignancy in either breast. OVERALL FINAL ASSESSMENT: BIRADS 2 BENIGN FINDING. RECOMMENDATION: Appropriate action should be taken. A letter with findings and recommendations will be mailed to the patient. Reading Location: [id number]
== END | disposition home or self-care (01) ==
LOC: OPBI 09:24
PROVIDERS: PCP Family Medicine; Referring Provider Family Medicine; Visit Provider Family Medicine
DX: N63.0 Unspecified lump in unspecified breast (principal); N64.4 Mastodynia; Z80.3 Family history of malignant neoplasm of breast
CPT/HCPCS: 77062; 77066; G0279

== ENCOUNTER → 2025-09-09 | Outpatient (CLI) | payer MEDICARE, OTHER, SELFPAY ==
[2025-09-09 10:07] LABS: Hematocrit 48.0 % (40-54); Hemoglobin 15.6 g/dL (13.0-16.5); Immature Granulocytes Count 0.010 X10^3/uL (0.0-0.0); Mean Corp Hgb Conc 32.5 g/dL (32-36); Mean Corpuscular Volume 89.4 fL (80-94); Mean Platelet Vol. 9.4 fl (6.2-12.0); NRBC Flagged by Analyzer 0 % (0-5); Platelet Count 214 K/mm3 (150-450); RBC Distribution Width CV 13.1 % (11.6-14.6); RBC Distribution Width SD 43.2 fl (35.1-43.9); Red Blood Count 5.37 M/mm3 (4.6-6.2); White Blood Count 5.4 K/mm3 (4.4-11.0)
[2025-09-09 10:25] LABS: AST(SGOT) 18 U/L (<=37); Alanine Aminotransfer ALT/SGPT 18 U/L (<=46); Albumin, Serum 4.5 g/dL (3.4-4.8); Alkaline Phosphatase 82 U/L (40-129); Anion Gap 12 (5-15); BUN 21 mg/dL (4-19); BUN/Creat Ratio 17.8 RATIO (10-20); Calcium,Total 9.3 mg/dL (7.6-11.0); Carbon Dioxide 24.8 mmol/L (21.0-32.0); Chloride 104 mmol/L (98-108); Cholesterol 107 mg/dL (<=200); Globulin 2.8 g/dL (2.2-4.2); Glucose 117 mg/dL (70-99); Low Density Lipoprotein Calc. 48 mg/dL; Magnesium 2.3 mg/dL (1.5-2.2); Potassium 3.9 mmol/L (3.3-5.1); Triglycerides 115 mg/dL; Uric Acid 5.8 mg/dL (3.5-7.2); Very Low Density Lipoprotein 23 mg/dL (5-40); cholesterol:hdl ratio screen 2.85
== END | disposition home or self-care (01) ==
LOC: MFPLAB 08:08
PROVIDERS: PCP Family Medicine; Visit Provider Family Medicine
DX: I47.10 Supraventricular tachycardia, unspecified (principal); R73.02 Impaired glucose tolerance (oral); I25.10 Atherosclerotic heart disease of native coronary artery without angina pectoris; M10.9 Gout, unspecified; E78.5 Hyperlipidemia, unspecified
CPT/HCPCS: 36415; 80053; 80061; 83036; 83735; 84550; 85025